=== PATIENT | male | born 1970 | race Caucasian/White ===

== ENCOUNTER 2021-12-24 12:08 | Emergency (ER) | payer BC, OTHER, SELFPAY ==
[2021-12-24 12:34] VITALS: BP 155/95; PULSE 95; RESP 18; TEMP 36.7; O2SAT 97; BMI 29.3
--- NOTE | 2021-12-24 12:59 | ED_ITS ---
HPI - General Adult General Chief complaint: Extremity Pain/Injury, Lower Stated complaint: Bilateral leg pain and swollen Time Seen by Provider: 12/24/21 12:42 Source: patient Mode of arrival: ambulatory Limitations: language barrier ( aided by deaf interpreter and myself in Urdu.) History of Present Illness HPI narrative: 51 year-old man presenting to the emergency department with complaint of swelling in his feet and little bit of his lower legs at the end of a workday as well as sensation of numbness particular toward the end of the day and the tingling is. The symptoms are not keeping him awake. Does not cause undue pain apparently is just uncomfortable. He does endorse rather uncontrolled blood sugars. Reviewing medication list I see that he has gabapentin 100 mg. He has not had fevers, shortness of breath or chest pain or noted trauma. I note some scarring or discoloration spots on his legs consistent with excoriation, he acknowledges that he ends up with a lot of mosquitos in his house. 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 his symptoms have not been affecting his work he says. he says these have been going on for at Least a month. He also can have These tingly sensations in his hands. It is not specific to the distribution of his median nerve. he has not been feeling particularly weak. He does acknowledge that his blood sugars have Been in the 600s. he does a say that he has a primary care provider in a [facility]. Related Data Home Medications Medication Instructions Recorded Confirmed atorvastatin 20 mg tablet mg 12/24/21 gabapentin 100 mg capsule mg 12/24/21 insulin aspart U-100 100 unit/mL subcut 12/24/21 (3 mL) subcutaneous pen (Novolog Flexpen U-100 Insulin aspart) insulin glargine 100 unit/mL unit subcut 12/24/21 subcutaneous solution (Lantus U-100 Insulin) metformin 500 mg tablet mg 12/24/21 Allergies Allergy/AdvReac Type Severity Reaction Status Date / Time No Known Drug Allergies Allergy Verified 12/24/21 12:40 Review of Systems Status of ROS: Reports: 10 or more systems reviewed and unremarkable except as noted in History and below Exam Narrative: Exam Narrative: Is pleasant. NAD. Breathing easily. Ambulates I note without apparent difficulty. Smaller stature but well muscled. Cardiovascular with regular rate rhythm skin is warm and dry. Noninflamed excoriations over the lower extremities. No edema at this time. Negative Homans. Const: Vital Signs, click to edit/add: Vital Signs - 24 hr 12/24/21 12:34 Temperature 98.0 F Pulse Rate [Right Pulse Oximeter] 95 Respiratory Rate 18 Blood Pressure [Ri ght Upper Arm] 155/95 H Pulse Oximetry 97 Oxygen Delivery Me thod Room Air Documenting provider has reviewed patient's vital signs: yes Course Course Hospital Course: As per Interview and exam. Vital Signs Vital signs: Initial Vital Signs Temperature 98.0 F 12/24/21 12:34 Temperature Source Temporal Artery Scan 12/24/21 12:34 Pulse Rate 95 12/24/21 12:34 Pulse Rhythm 12/24/21 12:34 Respiratory Rate 18 12/24/21 12:34 Blood Pressure 155/95 H 12/24/21 12:34 Blood Pressure Mean 115 12/24/21 12:34 Blood Pressure Position Sitting 12/24/21 12:34 Pulse Oximetry 97 12/24/21 12:34 Oxygen Delivery Method 12/24/21 12:34 Vital Signs Temperature 98.0 F 12/24/21 12:34 Pulse Rate 95 12/24/21 12:34 Respiratory Rate 18 12/24/21 12:34 Blood Pressure 155/95 H 12/24/21 12:34 Pulse Oximetry 97 12/24/21 12:34 Oxygen Delivery Method 12/24/21 12:34 Temperature 98.0 F 12/24/21 12:34 Pulse Rate 95 12/24/21 12:34 Respiratory Rate 18 12/24/21 12:34 Blood Pressure 155/95 H 12/24/21 12:34 Pulse Oximetry 97 12/24/21 12:34 Oxygen Delivery Method 12/24/21 12:34 Medical Decision Making MDM Narrative Medical decision making narrative: symptoms are consistent with peripheral neuropathy. would appear to already be treated for this. Importantly needs follow-up and review of treatment of blood sugars. This was discussed with Mr. Stanford. he does not appear to be in emergency Situation at this time. He has been monitoring his blood sugars which admittedly are out of control.. Discharge Plan Discharge Clinical Impression: Uncontrolled diabetes mellitus, Peripheral neuropathy Patient Disposition: Home, Self-Care Condition: Stable Additional Instructions: Please call today or ask staff to help you schedule an appointment with your primary care provider soon as possible. Importantly is to get good control of your blood sugars. I think uncontrolled blood sugars as you described are contributing to compromising the nerves and therefore creating the symptoms you are feeling. while not a cure, there are some medications that can otherwise lessen your symptoms if it becomes too uncomfortable. You can discuss this with your primary care provider .Llame gildardo o p?jeny al personal que lo ayude a programar nieves carole con horta proveedor de atenci?n primaria lo antes posible. Lo importante es obtener un buen control de miles niveles de az?car en la caroline. Creo que los niveles de az?car en la caroline no controlados ysabel usted describi? est?n contribuyendo a comprometer los nervios y, por lo tanto, a crear los s?ntomas que est? sintiendo. Si hermelindo no es nieves brandon, hay algunos medicamentos que de lo contrario pueden disminuir miles s?ntomas si se vuelve demasiado inc?modo. Puede discutir esto con horta proveedor de atenci?n primaria. Prescriptions: No Action metformin 500 mg tablet atorvastatin 20 mg tablet insulin glargine [Lantus U-100 Insulin] 100 unit/mL solution SUBCUT gabapentin 100 mg capsule insulin aspart U-100 [Novolog Flexpen U-100 Insulin] 100 unit/mL (3 mL) insulin pen SUBCUT Stand Alone Forms: MyHealth Info Instructions
== END 2021-12-24 13:39 | disposition home or self-care (01) ==
PROVIDERS: Emergency Provider Family Medicine
DX: E11.65 Type 2 diabetes mellitus with hyperglycemia (principal); E11.42 Type 2 diabetes mellitus with diabetic polyneuropathy; Z79.4 Long term (current) use of insulin
CPT/HCPCS: 99283

== ENCOUNTER 2022-11-28 17:56 | Inpatient (IN) | payer OTHER, SELFPAY ==
[2022-11-28 18:05] VITALS: BP 142/80; PULSE 87; RESP 16; TEMP 36.6; O2SAT 98; BMI 27.5
--- NOTE | 2022-11-28 18:28 | ED_ITS ---
HPI - General Adult General Time Seen by Provider: 18:28 Date Seen: 11/28/22 Chief complaint: Skin/Abscess/Foreign Body Stated complaint: Infection in toes, diabetic Time Seen by Provider: 11/28/22 18:26 Source: patient, RN notes reviewed and admission specialist Mode of arrival: ambulatory Limitations: no limitations History of Present Illness HPI narrative: Patient is a 52-year-old male accompanied by his coming in for concern of infected toe ulcers. He states he has toe ulcers on each of his great toes. His right great toe had had a prior previous partial amputation by Dr. Bhat. He denies any fevers. His had been taking care of these for weeks if not months and applying some medicine. Over the last 4 days, the swelling and pain was increasing. He does have underlying peripheral neuropathy which he states affects him up to about 2/3 up his lower extremities. Still is feeling pain in the wounds of his great toes, has been trying Tylenol. He admits that he has been off of his diabetic medicines for about 2 months due to cost issues. He has had no insulin. Denies any nausea vomiting but does admit that he will occasionally have diarrhea, last time was maybe 1-2 weeks ago. He does endorse chest pain, sometimes exertional burning chest pain, does note that often his chest will feel sore when he goes to bed at night. He is not having any chest symptomatology at this time. Related Data Home Medications Medication Instructions Recorded Confirmed atorvastatin 20 mg tablet mg 12/24/21 gabapentin 100 mg capsule mg 12/24/21 insulin glargine 100 unit/mL unit subcut 12/24/21 subcutaneous solution (Lantus U-100 Insulin) metformin 500 mg tablet mg 12/24/21 Previous Rx's Medication Instructions Recorded insulin aspart U-100 100 unit/mL 10 unit (0.1 mL) subcut TID #15 mL 10/18/22 (3 mL) subcutaneous pen (Novolog FlexPen U-100 Insulin aspart) pen needle, diabetic 31 gauge x #100 ea 10/18/2209/24 (UltiCare Pen Needle) Allergies Allergy/AdvReac Type Severity Reaction Status Date / Time No Known Drug Allergies Allergy Verified 12/24/21 12:40 Review of Systems Status of ROS: Reports: 6 or more systems reviewed and unremarkable except as noted in History and below PFSH PFS Medical History Diabetic neuropathy ?E11.40 - Type 2 diabetes mellitus with diabetic neuropathy, unspecified (ICD-10) Diabetes mellitus ?E11.9 - Type 2 diabetes mellitus without complications (ICD-10) Surgical History No significant past surgical history Social History Smoking Status: Never smoker How often do you have a drink containing alcohol: monthly or less How many standard drinks containing alcohol do you have on a typical day: 1 or 2 How often do you have six or more drinks on one occasion: Never AUDIT-C Alcohol total score: 1 Non-prescribed substance use: denies use Exam Const: Vital Signs, click to edit/add: Vital Signs - 24 hr 11/28/22 18:05 Temperature 97.8 F Pulse Rate [Pulse Oximeter] 87 Respiratory Rate 16 Blood Pressure [Ri ght Upper Arm] 142/80 H Pulse Oximetry 98 Oxygen Delivery Me thod Room Air Documenting provider has reviewed patient's vital signs: yes Common normals: no apparent distress, average body habitus, oriented x3, no limitations, healthy appearing, alert and well nourished General appearance: cooperative, comfortable, well kempt and well developed HENMT: Common normals: normocephalic, head/scalp atraumatic and hearing grossly normal bilaterally Head and scalp: normocephalic and atraumatic Face and sinus: normal facial exam Eye: Common normals: PERRL, EOMs intact bilaterally, conjunctivae normal and no scleral icterus Conjunctiva: conjunctiva(e) normal Pupil: PERRL Neck & C-Spine: Common normals: full ROM, no lymphadenopathy, supple, no meningeal signs, no JVD and thyroid normal Thyroid: thyroid normal Resp: Common normals: normal respiratory effort, no retractions, no use of accessory muscles and clear to auscultation bilaterally Effort & inspection: able to speak in complete sentences Auscultation: clear to auscultation bilaterally Cardio: Common normals: no JVD, regular rate, regular rhythm, S1 normal heart sound, S2 normal heart sound, no gallops, no clicks and no murmurs Rate: regular rate Rhythm: regular rhythm Heart sounds: S1 normal and S2 normal GI: Common normals: Normal to inspection, nondistended, normoactive bowel sounds present, soft to palpation, non-tender, no hepatosplenomegaly and no masses Palpation: soft and no hepatosplenomegaly Extremity: Other: On his right foot, has partial amputation of the great toe, on the plantar surface, there is an ulcerated wound with a dry base. It is blackish discolored in the center, some whitish tissue around it, no drainage. There does seem to be some soft tissue change in swelling within the residual phalanx. On the left great toe, do see some clear drainage, blistering laterally and distally, ulcer on the pad of this toe, erythema in the toe itself and swelling. Does seem to have dorsalis pedis faint pulses bilateral feet, states he does feel when I touch the top of his feet. There is no lower extremity edema/no pitting edema along the tibial regions bilaterally. Neuro: Common normals: oriented x3 Sensorium/orientation: alert Meningeal signs: no meningeal signs Psych: Appearance: well kempt Course Course Hospital Course: Need to assess further for infection, consideration for osteomyelitis in this diabetic patient. Will start with plain films of his toes, cannot do any advanced imaging with MRI at this time. Will get appropriate labs, place an IV. Will definitely need antibiotics. Will attempt to get a culture of the toe. Reevaluation(s) Time of Reevaluation #1: 20:40 Reevaluation #1: Did talk to patient about admission to the hospital with IV antibiotics and re- initiation of diabetic medications. They understand and agree. Did clean his right great toe near the distal lateral aspect, then was able to culture some purulent fluid that I a expressed from the tissue. This will be sent for wound culture. Will be initiating vancomycin and Zosyn, will give insulin Levemir. Consultations Consultation #1: Have completed my sign out to the hospitalist. He accepts patient and will be seening him shortly. Time: 21:07 Vital Signs Vital signs: Initial Vital Signs Temperature 97.8 F 11/28/22 18:05 Temperature Source Temporal Artery Scan 11/28/22 18:05 Pulse Rate 87 11/28/22 18:05 Respiratory Rate 16 11/28/22 18:05 Blood Pressure 142/80 H 11/28/22 18:05 Blood Pressure Mean 100 11/28/22 18:05 Blood Pressure Position Supine 11/28/22 18:05 Pulse Oximetry 98 11/28/22 18:05 Oxygen Delivery Method Room Air 11/28/22 18:05 Vital Signs Temperature 97.8 F 11/28/22 18:05 Pulse Rate 87 11/28/22 18:05 Respiratory Rate 16 11/28/22 18:05 Blood Pressure 142/80 H 11/28/22 18:05 Pulse Oximetry 98 11/28/22 18:05 Oxygen Delivery Method Room Air 11/28/22 18:05 Temperature 97.8 F 11/28/22 18:05 Pulse Rate 87 11/28/22 18:05 Respiratory Rate 16 11/28/22 18:05 Blood Pressure 142/80 H 11/28/22 18:05 Pulse Oximetry 98 11/28/22 18:05 Oxygen Delivery Method Room Air 11/28/22 18:05 Medical Decision Making Lab Data Lab results reviewed: Yes I reviewed the patient's lab results Labs: Lab Results 11/28/22 Range/Units 18:55 WBC 8.68 (4.50-11.00) K/uL RBC 5.13 (4.30-5.90) m/uL Hgb 15.0 (13.5-17.5) gm/dL Hct 43.0 (37.0-53.0) % MCV 84 (80-100) fL MCH 29 (26-34) pg MCHC 35 (32-36) gm/dL RDW Coeff of Abrahan 11.9 (11.5-15.5) % Plt Count 359 (140-440) K/uL Neut % (Auto) 60.0 (42.0-72.0) % Lymph % (Auto) 26.4 (20-44) % [place] % (Auto) 9.7 (0.0-11.0) % Eos % (Auto) 3.2 (0.0-7.0) % Baso % (Auto) 0.5 (0.0-3.0) % Neut # (Auto) 5.21 (1.7-7.0) K/uL Lymph # (Auto) 2.29 (0.90-2.90) K/uL [place] # (Auto) 0.80 (0.00-0.90) K/UL Eos # (Auto) 0.28 (0.00-0.50) K/uL Baso # (Auto) 0.04 (0.00-0.30) K/uL Abs Immat Gran (auto) 0.02 (0.00-0.30) K/uL Imm/Tot Granulo (auto) 0.2 % Sodium 131 L (135-149) mmol/L Potassium 3.8 (3.6-5.1) mmol/L Chloride 97 (96-114) mmol/L Carbon Dioxide 25 (20-32) mmol/L BUN 15 (7-30) mg/dL Creatinine 0.6 (0.5-1.5) mg/dL Estimated Creat Clear 121.96 Estimated GFR 117 ml/min Glucose 429 H* (60-115) mg/dL Lactate 1.8 (0.5-1.9) mmol/L Calcium 8.8 (8.4-10.6) mg/dL Total Bilirubin 0.7 (0.1-1.5) mg/dL AST 21 (12-35) U/L ALT 26 (4-50) U/L Alkaline Phosphatase 180 H (40-150) U/L Troponin I < 0.01 L (0.01-0.04) ng/mL C-Reactive Protein 2.5 H (0.5-1.0) mg/dL NT-Pro-B Natriuret Pep 78 pg/mL Total Protein 7.3 (6.0-8.3) g/dL Albumin 4.0 (3.3-5.0) g/dL Imaging Data XR left great toe: Attestation: I have reviewed the pertinent imaging results. My impression: Can see the ulceration, swelling but do not appreciate any changes of osteomyelitis on my preliminary review. Radiologist's impression: Patient: JAZMYN ARGUELLO Facility:?[facility] Patient ID:?[id number] Site Patient ID:?[id number]. Site :?1970 Study:?XRay Extremity Left Great Toe 3 views-11/28/2022 7:27:15 PM Ordering Physician:?Arnol Alvarez Final Report: Indication: Assess for osteomyelitis Technique: Three views of the left great toe were acquired Comparison: Non specific to this area Findings: Soft tissue swelling. Atherosclerotic vascular calcifications. No fracture, dislocation or destructive process. No periosteal reaction, erosion or bone destruction to suggest osteomyelitis by plain film Impression: Soft tissue swelling. No plain film evidence of osteomyelitis Dictated by Delvis Armenta MD @ 11/28/2022 8:25:25 PM (Electronic Signature) XR right great toe: Attestation: I have reviewed the pertinent imaging results. My impression: This toes been partially amputated before, can see ulceration tissue swelling but do not appreciate bony changes of osteomyelitis on my preliminary review. Await Radiology over-read. Radiologist's impression: Patient: JAZMYN ARGUELLO Facility:?[facility] Patient ID:?[id number] Site Patient ID:?[id number]. Site :?1970 Study:?XRay Extremity Right Great Toe 3 views-11/28/2022 7:27:55 PM Ordering Physician:?Arnol Alvarez Final Report: Indication: Infected ulcer. Technique: Three views of the right great toe were acquired. Comparison: A prior study dated November 09, 2020. At study was before the amputation of the distal phalanx of the great toe Findings: There has been interval amputation of the distal phalanx of the right great toe. An ulcer is noted at the distal medial aspect of remaining right great toe. On the oblique view, there is subtle erosion questioned adjacent to the ulcer which probably represents osteomyelitis. This could be confirmed by MRI. Impression: Suspect osteomyelitis involving the medial aspect of the head of the remaining proximal phalanx of the right great toe. This could be confirmed by MRI. Dictated by Delvis Armenta MD @ 11/28/2022 7:42:39 PM (Electronic Signature) ECG Data Attestation: I personally reviewed and interpreted this ECG as follows: (Sinus rhythm, 86 beats per minute. Poor R-wave progression in anterior precordial leads without any ST segment changes. QT corrected 440 milliseconds.) Prior ECG tracings: not available for review Critical Care Time Critical Care Time Critical Care Time: No Discharge Plan Discharge Prescriptions: No Action metformin 500 mg tablet atorvastatin 20 mg tablet insulin glargine [Lantus U-100 Insulin] 100 unit/mL solution SUBCUT gabapentin 100 mg capsule (DME) pen needle, diabetic [UltiCare Pen Needle] 31 gauge x 5/16 needle See Rx Instructions .ROUTE .COMPLEX Qty: 100 0RF Dose Instruction: USE DIRECTED WITH INSULIN Rx Instructions: USE DIRECTED WITH INSULIN insulin aspart U-100 [Novolog FlexPen U-100 Insulin] 100 unit/mL (3 mL) insulin pen 10 unit SUBCUT TID Qty: 15 0RF Rx Instructions: Patient is due for an appt. Follow Up/Referrals: Provider,Not a Local [Primary Care Provider] -
--- NOTE | 2022-11-28 18:44 | CRLHL7_ITS ---
For Patients: As a result of the Cures Act, medical imaging exams and procedure reports are released immediately into your electronic medical record. You may view this report before your referring provider. If you have questions, please contact your health care provider. Indication: Infected ulcer. Technique: Three views of the right great toe were acquired. Comparison: A prior study dated November 09, 2020. At study was before the amputation of the distal phalanx of the great toe Findings: There has been interval amputation of the distal phalanx of the right great toe. An ulcer is noted at the distal medial aspect of remaining right great toe. On the oblique view, there is subtle erosion questioned adjacent to the ulcer which probably represents osteomyelitis. This could be confirmed by MRI. Impression: Suspect osteomyelitis involving the medial aspect of the head of the remaining proximal phalanx of the right great toe. This could be confirmed by MRI. Dictated by Delvis Armenta MD @ 11/28/2022 7:42:39 PM (Electronically Signed)
--- NOTE | 2022-11-28 18:44 | CRLHL7_ITS ---
For Patients: As a result of the Cures Act, medical imaging exams and procedure reports are released immediately into your electronic medical record. You may view this report before your referring provider. If you have questions, please contact your health care provider. Indication: Assess for osteomyelitis Technique: Three views of the left great toe were acquired Comparison: Non specific to this area Findings: Soft tissue swelling. Atherosclerotic vascular calcifications. No fracture, dislocation or destructive process. No periosteal reaction, erosion or bone destruction to suggest osteomyelitis by plain film Impression: Soft tissue swelling. No plain film evidence of osteomyelitis Dictated by Delvis Armenta MD @ 11/28/2022 8:25:25 PM (Electronically Signed)
[2022-11-28 19:02] LABS: Basophils Absolute Auto 0.04 K/uL (0.00-0.30); Basophils Percent Auto 0.5 % (0.0-3.0); Eosinophils Absolute Auto 0.28 K/uL (0.00-0.50); Eosinophils Percent Auto 3.2 % (0.0-7.0); Immature Granulocytes Abs Auto 0.02 K/uL (0.00-0.30); Immature Granulocytes Pct Auto 0.2 %; Lymphocytes Absolute Auto 2.29 K/uL (0.90-2.90); Lymphocytes Percent Auto 26.4 % (20-44); Mean Corpuscular HGB Conc 35 gm/dL (32-36); Mean Corpuscular Hemoglobin 29 pg (26-34); Mean Corpuscular Volume 84 fL (80-100); Monocytes Percent Auto 9.7 % (0.0-11.0); Neutrophils Absolute Auto 5.21 K/uL (1.7-7.0); Platelet Count* 359 K/uL (140-440); RDW Coefficient of Variation % 11.9 % (11.5-15.5); Red Blood Count 5.13 m/uL (4.30-5.90); White Blood Count* 8.68 K/uL (4.50-11.00)
[2022-11-28 19:04] LABS: Slide Review Reflex No
[2022-11-28 19:05] LABS: Lactate* 1.8 mmol/L (0.5-1.9)
[2022-11-28 19:16] LABS: Chloride* 97 mmol/L (96-114); Sodium* 131 mmol/L (135-149)
[2022-11-28 19:17] LABS: Potassium* 3.8 mmol/L (3.6-5.1)
[2022-11-28 19:19] LABS: Aspartate Amino Transferase* 21 U/L (12-35); Bilirubin Total* 0.7 mg/dL (0.1-1.5); Carbon Dioxide* 25 mmol/L (20-32); Creatinine* 0.6 mg/dL (0.5-1.5); Est. Creatinine Clearance* 121.96; Estimated Glomerular Filt Rate 117 ml/min; Total Protein* 7.3 g/dL (6.0-8.3)
[2022-11-28 19:20] LABS: Alanine Aminotransferase* 26 U/L (4-50); Alkaline Phosphatase* 180 U/L (40-150); Blood Urea Nitrogen* 15 mg/dL (7-30); Calcium* 8.8 mg/dL (8.4-10.6)
[2022-11-28 19:22] LABS: C Reactive Protein* 2.5 mg/dL (0.5-1.0)
[2022-11-28 19:24] LABS: Glucose* 429 mg/dL (60-115)
[2022-11-28 19:39] LABS: Troponin I* < 0.01 ng/mL (0.01-0.04)
[2022-11-28 19:40] LABS: NT Pro B Type NatriureticPept* 78 pg/mL
[2022-11-28] MEDS: PIPERACILLIN/TAZOBACTAM 3.375 GM in 0.9 % SODIUM CHLORIDE Mini-bag 100 ML IVPB (20:35)
[2022-11-28 21:30] VITALS: BP 142/84; PULSE 74; RESP 16; O2SAT 99
[2022-11-28 22:10] VITALS: BP 134/88; PULSE 75; RESP 18; TEMP 36.2; O2SAT 96; BMI 25.7
--- NOTE | 2022-11-28 22:52 | PC.NURSE ---
Pt alert and oriented. Pt pleasant and cooperative. Pt Independent in room. Pt has pressure ulcers to both Great toes; right great toe partially amputated. Pt had no complaints of pain upon arrival to floor. Pt will be NPO after midnight and seen by Dr. Lindsay in AM.
--- NOTE | 2022-11-28 23:43 | PM.IMHP1 ---
Hospitalist- H&P: HPI History of Present Illness Time Seen by Provider: 22:00 Date Seen: 11/28/22 Chief complaint: Infection in toes, diabetic Narrative: Osmar Moreno is a 52 year old man who presents to the emergency department for assessment of nonhealing diabetic foot ulcers on the plantar aspect of both right and left great toes. He has been trying to care for these for at least a month. Been treating with topical qcfj-iiw-ixmluhi antibiotics. Continues to work outside the home, utilizes normal shoes. Does not have diabetic shoes. Has not had fevers, rigors, diaphoresis. Over the past 4 days, he and his have noted increasing swelling of both toes, and interestingly even though he has diabetic peripheral neuropathy, he has been having more pain. Has been trying to treat the pain with hhof-ecw-zfftaif acetaminophen only. As diabetes mellitus type 2. Due to patient not having health insurance and minimal funds, he does not follow with primary care physician and does not take any medications. He has been off of his medications including his insulin for at least 2 months. Review of Systems Status of ROS: Reports: 10 or more systems reviewed and unremarkable except as noted in History and below Narrative: Over the past couple weeks he has had occasional episodes of loose stools, no diarrhea per se. Denies melena or hematochezia. Denies nausea, vomiting, hematemesis. Denies dysuria, urgency, frequency, hematuria. Occasionally has chest discomfort described as burning typically when he goes to bed at night. Denies the chest discomfort with exertion during the day. If he rests eventually it resolves. Denies syncope or near-syncope. Denies palpitations or chest fluttering. Denies cough, dyspnea at rest, paroxysmal nocturnal dyspnea, orthopnea. Denies claudication symptoms. Denies dependent edema. Still play soccer periodically with his 12-year-old son. [facility] Medical History (Updated 11/28/22 @ 23:59 by Royal Nguyễn MD) Personal history of diabetic foot ulcer ?Z86.31 - Personal history of diabetic foot ulcer (ICD-10) Erectile dysfunction ?N52.9 - Male erectile dysfunction, unspecified (ICD-10) Hyperlipidemia ?E78.5 - Hyperlipidemia, unspecified (ICD-10) Patient's noncompliance with other medical treatment and regimen due to financial hardship ?Z91.190 - Patient's noncompliance with other medical treatment and regimen due to financial hardship (ICD-10) Diabetic neuropathy ?E11.40 - Type 2 diabetes mellitus with diabetic neuropathy, unspecified (ICD-10) Diabetes mellitus ?E11.9 - Type 2 diabetes mellitus without complications (ICD-10) Surgical History (Updated 11/28/22 @ 23:40 by Royal Nguyễn MD) History of partial amputation of toe of right foot ?Z89.421 - Acquired absence of other right toe(s) (ICD-10) Family History (Updated 11/28/22 @ 23:41 by Royal Nguyễn MD) Mother Diabetes Father Diabetes Social History (Updated 11/28/22 @ 23:43 by Royal Nguyễn MD) Narrative: . Lives with . They have 4 children. Cameroonian is his primary language. Speaks Chinese fairly fluently. , Mulu, does not speak Chinese fluently. Working outside the home. Does not have a primary care physician. Cannot afford medications, therefore does not take any medications even though he warrants medications to manage his underlying medical conditions. Requests full resuscitation in the event of cardiopulmonary demise. Designates his , Mulu, as power of health care attorney for health should that be required. What is your current living situation?: I presently have a place to live Problems where you live: no known problems Problems where you live details: NA In the past 12 months, utilities in danger of being shut off: no In the past 12 mos, have been you worried that your food would run out before you had money to buy more?: never true In the past 12 mos, the food you bought just didn't last and you didn't have money to buy more?: never true Highest level of school completed/degree received: don't know Smoking Status: Never smoker How often do you have a drink containing alcohol: monthly or less How many standard drinks containing alcohol do you have on a typical day: 1 or 2 How often do you have six or more drinks on one occasion: Never AUDIT-C Alcohol total score: 1 Non-prescribed substance use: denies use Caffeine: Yes How often does anyone, including family, friends and others, physically hurt you: never How often does anyone, including family, friends and others, insult or talk down to you: never How often does anyone, including family, friends and others, threaten you with harm: never How often does anyone, including family, friends and others, scream or curse at you: never Gender Identity: male service: No Meds Home Medications and Allergies Home Medications Medication Instructions Recorded Confirmed Type atorvastatin 20 mg tablet mg 12/24/21 History gabapentin 100 mg capsule mg 12/24/21 History insulin glargine 100 unit/mL unit subcut 12/24/21 History subcutaneous solution (Lantus U-100 Insulin) metformin 500 mg tablet mg 12/24/21 History Home Medication Comments: Currently taking no medications whatsoever. Has not been taking medications for at least 2 months. Unable to afford his medications. Allergies Allergy/AdvReac Type Severity Reaction Status Date / Time No Known Drug Allergies Allergy Verified 12/24/21 12:40 Exam Narrative: Exam Narrative: I examine him in the emergency department. He appears comfortable and in no acute distress. Speaks Cameroonian fluently with his . Able to speak Chinese quite adequately with myself, understanding, engaging in meaningful dialogue without difficulty. Interprets some of the conversation that I have with him for his who speaks Cameroonian fluently and speaks very little Chinese. Vision and hearing are grossly normal. Alert, oriented to self, place, time, situation. Friendly, articulate, cooperative. Mood and affect are congruent. External auditory canals and tympanic membranes are normal. Midline nasal septum. Dentition in fair repair. Moist buccal mucosa. No icterus or conjunctival injection. Pupils equally round and reactive to light and accommodation. Extraocular muscles are intact. Neck is supple. Midline trachea. No JVD or hepatojugular reflux. No carotid bruits. No head and neck lymphadenopathy. Lungs are clear to auscultation without wheezing, rhonchi, or rales. Chest wall excursions are full. No CVA tenderness or pain to palpation over the spine. Heart tones with regular rhythm, normal S1-S2, without murmur, gallop, or rub. PMI is not laterally displaced. Abdomen with active bowel sounds, soft, nontender. No organomegaly or masses. No rebound or guarding. Palpable pulses upper and lower extremities. No focal motor neurologic deficits. Decreased sensory awareness below the knee bilaterally including the feet. Swelling of both right and left hallux. Ulcers on the plantar aspect of both hallux. Both hallux are warm to touch. Minimal to moderate erythema of both hallux. Minimal purulent drainage of the left hallux. Const: Vital Signs, click to edit/add: Vital Signs - 24 hr 11/28/22 18:05 11/28/22 21:30 11/28/22 22:10 Temperature 97.8 F 97.1 F L Pulse Rate [Pulse Oximeter] 87 74 75 Respiratory Rate 16 16 18 Blood Pressure [Ri ght Arm] 134/88 Blood Pressure [Ri ght Upper Arm] 142/80 H 142/84 H Pulse Oximetry 98 99 96 Oxygen Delivery Me thod Room Air Room Air Room Air 11/28/22 22:10 Temperature Pulse Rate [Pulse Oximeter] Respiratory Rate 18 Blood Pressure [Ri ght Arm] Blood Pressure [Ri ght Upper Arm] Pulse Oximetry 96 Oxygen Delivery Me thod Room Air Documenting provider has reviewed patient's vital signs: yes Hospitalist - H&P: Result Labs Labs: Short CBC 11/28/22 Range/Units 18:55 WBC 8.68 (4.50-11.00) K/uL Hgb 15.0 (13.5-17.5) gm/dL Hct 43.0 (37.0-53.0) % Plt Count 359 (140-440) K/uL BMP 11/28/22 18:55 Sodium 131 L Potassium 3.8 Chloride 97 Carbon Dioxide 25 BUN 15 Creatinine 0.6 Glucose 429 H* Calcium 8.8 Cardiac Enzymes 11/28/22 Range/Units 18:55 Troponin I < 0.01 L (0.01-0.04) ng/mL Liver Function 11/28/22 Range/Units 18:55 Total Bilirubin 0.7 (0.1-1.5) mg/dL AST 21 (12-35) U/L ALT 26 (4-50) U/L Alkaline Phosphatase 180 H (40-150) U/L Albumin 4.0 (3.3-5.0) g/dL ECG Attestation: I personally reviewed and interpreted this ECG as follows: ECG interpretation date: 11/28/22 ECG interpretation time: 22:00 Interpretation: Normal sinus rhythm. Poor R-wave progression anteriorly, without any acute ischemic changes noted. Imaging X-ray - left great toe: Attestation: I have reviewed the pertinent imaging results. Radiologist's impression: Findings: Soft tissue swelling. Atherosclerotic vascular calcifications. No fracture, dislocation or destructive process. No periosteal reaction, erosion or bone destruction to suggest osteomyelitis by plain film Impression: Soft tissue swelling. No plain film evidence of osteomyelitis X-ray - right great toe: Attestation: I have reviewed the pertinent imaging results. Radiologist's impression: Findings: There has been interval amputation of the distal phalanx of the right great toe. An ulcer is noted at the distal medial aspect of remaining right great toe. On the oblique view, there is subtle erosion questioned adjacent to the ulcer which probably represents osteomyelitis. This could be confirmed by MRI. Impression: Suspect osteomyelitis involving the medial aspect of the head of the remaining proximal phalanx of the right great toe. This could be confirmed by MRI. Assessment and Plan Assessment and plan (1) Diabetic foot ulcer with osteomyelitis: Problem comment: Right great toe medial aspect phalanx Status: Acute Assessment and Plan: 1. Consultation with Dr. Guanaco Bhat, pedal assembler. 2. IV vancomycin and IV Zosyn. 3. NPO after midnight. 4. Schedule acetaminophen and as needed oxycodone. 5. Physical therapy consultation. Will attempt to optimize offloading of the diabetic foot ulcers. (2) Diabetic ulcer of foot associated with diabetes mellitus due to underlying condition, limited to breakdown of skin: Problem comment: Left great toe Status: Acute Assessment and Plan: 1. Plan as specified above regarding the right great toe foot ulcer with osteomyelitis. 2. Phone culture obtained in the emergency department. (3) Diabetes mellitus: Problem comment: DMT2, poor control Status: Acute Assessment and Plan: 1. Reinitiate insulin, long-acting Levemir, and sliding scale short-acting insulin, aspart, while in hospital. 2. When discharging will likely need to change to a more affordable insulin such as 70 30 NPH and regular insulin. 3. Will not initiate metformin therapy at this juncture. (4) Patient's noncompliance with other medical treatment and regimen due to financial hardship: Status: Acute Assessment and Plan: 1. Complaint Specialist consultation. Plan 1. Reviewed impression with patient and . Answered their questions. 2. They agreeable with above stated plans and recommendations.
[2022-11-29] VITALS (35 sets, daily range): BP systolic 110–173; BP diastolic 69–100; PULSE 70–86; RESP 14–18; TEMP 35.9–36.8; O2SAT 94–98
[2022-11-29] MEDS: SODIUM CHLORIDE 0.9 % (FLUSH) 10 ML SYRINGE 5 ML IVF ×2 (00:52→03:04)
[2022-11-29] MEDS: LACTATED RINGERS 1000 ML 1,000 ML 75 ML IV ×2 (00:52→19:31)
[2022-11-29] MEDS: 0.9 % SODIUM CHLORIDE 250 ml IV (03:03)
[2022-11-29] MEDS: PIPERACILLIN/TAZOBACTAM 3.375 GM in 0.9 % SODIUM CHLORIDE Mini-bag 100 ML IVPB ×4 (03:04→20:45)
--- NOTE | 2022-11-29 05:42 | PC.NURSE ---
END OF SHIFT NOTE: PT PLEASANT AND COOPERATIVE. A&Ox4. DENIES CP, SOB, N/V. AMBULATES INDEPENDENTLY WITHIN ROOM. VSS ON RA; AFEBRILE. PT HAS BEEN NPO SINCE MIDNIGHT. -GAETANO STAYED NIGHT AT PT'S BEDSIDE. DR. WELCH TO SEE PT AT BEDSIDE THIS AM. CALL LIGHT WITHIN PT?S REACH.?
[2022-11-29 06:40] LABS: Basophils Percent Auto 0.6 % (0.0-3.0); Eosinophils Percent Auto 5.7 % (0.0-7.0); Hematocrit 43.3 % (37.0-53.0); Immature Granulocytes Pct Auto 0.3 %; Lymphocytes Percent Auto 29.7 % (20-44); Mean Corpuscular HGB Conc 35 gm/dL (32-36); Mean Corpuscular Hemoglobin 29 pg (26-34); Mean Corpuscular Volume 84 fL (80-100); Monocytes Percent Auto 9.2 % (0.0-11.0); Neutrophils Percent Auto 54.5 % (42.0-72.0); Platelet Count* 333 K/uL (140-440); Red Blood Count 5.16 m/uL (4.30-5.90); White Blood Count* 6.71 K/uL (4.50-11.00)
[2022-11-29 06:41] LABS: Basophils Absolute Auto 0.04 K/uL (0.00-0.30); Eosinophils Absolute Auto 0.38 K/uL (0.00-0.50); Immature Granulocytes Abs Auto 0.02 K/uL (0.00-0.30); Lymphocytes Absolute Auto 1.99 K/uL (0.90-2.90); Neutrophils Absolute Auto 3.66 K/uL (1.7-7.0)
[2022-11-29 06:43] LABS: Slide Review Reflex No
[2022-11-29 06:57] LABS: INR 1.07 (0.91-1.10); Prothrombin Time 14.5 Seconds
[2022-11-29 07:14] LABS: Chloride* 100 mmol/L (96-114)
[2022-11-29 07:15] LABS: Potassium* 4.1 mmol/L (3.6-5.1); Sodium* 134 mmol/L (135-149)
[2022-11-29 07:17] LABS: Alkaline Phosphatase* 143 U/L (40-150); Creatinine* 0.6 mg/dL (0.5-1.5); Est. Creatinine Clearance* 121.96; Estimated Glomerular Filt Rate 117 ml/min
[2022-11-29 07:18] LABS: Blood Urea Nitrogen* 18 mg/dL (7-30); Carbon Dioxide* 25 mmol/L (20-32); Glucose* 305 mg/dL (60-115)
[2022-11-29 07:19] LABS: Calcium* 8.7 mg/dL (8.4-10.6); Phosphorus* 3.9 mg/dL (2.5-4.5)
[2022-11-29 07:21] LABS: C Reactive Protein* 2.3 mg/dL (0.5-1.0)
--- NOTE | 2022-11-29 08:47 | P.PODCN_ITS ---
[facility] - Podiatry Data of Consult Time Seen by Provider: 08:00 Date Seen: 11/29/22 Patient: Other Consult date: 11/29/22 Requesting physician: Royal Nguyễn MD Primary care provider: Not a Local Provider Consult Narrative Reason for consult: Osteomyelitis right great toe Narrative: Osmar Moreno is a 52 year old man who presented to the emergency department for assessment of nonhealing diabetic foot ulcers on the plantar aspect of both right and left great toes. He has been trying to care for these for at least a month. Been treating with topical pcbk-rmx-rdekjfk antibiotics. Continues to work outside the home, utilizes normal shoes. Does not have diabetic shoes. Has not had fevers, rigors, diaphoresis. Over the past 4 days, he and his have noted increasing swelling of both toes, and interestingly even though he has diabetic peripheral neuropathy, he has been having more pain. Has been trying to treat the pain with qpzh-nko-bzqbxui acetaminophen only. As diabetes mellitus type 2. Due to patient not having health insurance and minimal funds, he does not follow with primary care physician and does not take any medications. He has been off of his medications including his insulin for at least 2 months. Patient is well known to me and has had previous partial right great toe amputation. cc:: CC: Royal Nguyễn MD Review of Systems Status of ROS: Reports: 10 or more systems reviewed and unremarkable except as noted in History and below [facility] Medical History (Updated 11/28/22 @ 23:59 by Royal Nguyễn MD) Personal history of diabetic foot ulcer ?Z86.31 - Personal history of diabetic foot ulcer (ICD-10) Erectile dysfunction ?N52.9 - Male erectile dysfunction, unspecified (ICD-10) Hyperlipidemia ?E78.5 - Hyperlipidemia, unspecified (ICD-10) Patient's noncompliance with other medical treatment and regimen due to financial hardship ?Z91.190 - Patient's noncompliance with other medical treatment and regimen due to financial hardship (ICD-10) Diabetic neuropathy ?E11.40 - Type 2 diabetes mellitus with diabetic neuropathy, unspecified (ICD-10) Diabetes mellitus ?E11.9 - Type 2 diabetes mellitus without complications (ICD-10) Surgical History (Updated 11/28/22 @ 23:40 by Royal Nguyễn MD) History of partial amputation of toe of right foot ?Z89.421 - Acquired absence of other right toe(s) (ICD-10) Family History (Updated 11/28/22 @ 23:41 by Royal Nguyễn MD) Mother Diabetes Father Diabetes Social History (Updated 11/28/22 @ 23:43 by Royal Nguyễn MD) Narrative: . Lives with . They have 4 children. [place] is his primary language. Speaks Surinamese fairly fluently. , Mulu, does not speak Surinamese fluently. Working outside the home. Does not have a primary care physician. Cannot afford medications, therefore does not take any medications even though he warrants medications to manage his underlying medical conditions. Requests full resuscitation in the event of cardiopulmonary demise. Designates his , Mulu, as power of equipment engineer for health should that be required. What is your current living situation?: I presently have a place to live Problems where you live: no known problems Problems where you live details: NA In the past 12 months, utilities in danger of being shut off: no In the past 12 mos, have been you worried that your food would run out before you had money to buy more?: never true In the past 12 mos, the food you bought just didn't last and you didn't have money to buy more?: never true Highest level of school completed/degree received: don't know Smoking Status: Never smoker How often do you have a drink containing alcohol: monthly or less How many standard drinks containing alcohol do you have on a typical day: 1 or 2 How often do you have six or more drinks on one occasion: Never AUDIT-C Alcohol total score: 1 Non-prescribed substance use: denies use Caffeine: Yes How often does anyone, including family, friends and others, physically hurt you : never How often does anyone, including family, friends and others, insult or talk down to you: never How often does anyone, including family, friends and others, threaten you with harm: never How often does anyone, including family, friends and others, scream or curse at you: never Gender Identity: male service: No Exam Narrative: Exam Narrative: General: No distress resting comfortably. Vascular: Faintly palpable dorsalis pedis and posterior tibial pulses bilateral. Capillary fill time less than 3 seconds. Neuro: Insensate to light touch bilateral feet. Musculoskeletal: Partial amputation right great toe. Normal muscle strength bilateral by mouth. Derm: The plantar aspect of right great toe stump with ulceration that is 1 cm x 1 cm with exposed proximal phalanx. No purulence. No significant erythema around the right toe. Left great toe with edema to the distal tip with abscess formation. Following debridement of the abscess there is exposed distal phalanx. Plantar left great toe with open ulceration with exposed subcutaneous tissue. No exposed bone. Ulceration measures 2 cm x 1.5 cm. There is no erythema at the level of the proximal phalangeal base or MPJ. WBC 8.6 down to 6.7 Hemoglobin A1c 12.7 CRP 2.5 down to 2.3 Glucose 429 X-ray: Osteomyelitis distal medial proximal phalanx right great toe. Const: Vital Signs, click to edit/add: Vital Signs - 24 hr 11/28/22 18:05 11/28/22 21:30 11/28/22 22:10 Temperature 97.8 F 97.1 F L Pulse Rate [Pulse Oximeter] 87 74 75 Respiratory Rate 16 16 18 Blood Pressure [Le ft Arm] Blood Pressure [Ri ght Arm] 134/88 Blood Pressure [Ri ght Upper Arm] 142/80 H 142/84 H Pulse Oximetry 98 99 96 Oxygen Delivery Me thod Room Air Room Air Room Air 11/28/22 22:10 11/29/22 00:50 11/29/22 03:00 Temperature 97.6 F Pulse Rate [Pulse Oximeter] 70 71 Respiratory Rate 18 16 16 Blood Pressure [Le ft Arm] 124/82 Blood Pressure [Ri ght Arm] Blood Pressure [Ri ght Upper Arm] Pulse Oximetry 96 97 Oxygen Delivery Me thod Room Air Room Air 11/29/22 07:20 11/29/22 07:20 11/29/22 07:20 Temperature 97.1 F L Pulse Rate [Pulse Oximeter] 74 Respiratory Rate 16 18 18 Blood Pressure [Le ft Arm] 147/87 H Blood Pressure [Ri ght Arm] Blood Pressure [Ri ght Upper Arm] Pulse Oximetry 97 96 Oxygen Delivery Me thod Room Air Room Air Documenting provider has reviewed patient's vital signs: yes Assessment and Plan Assessment and plan (1) Diabetic foot ulcer with osteomyelitis: Problem comment: Right great toe medial aspect phalanx Status: Acute (2) Diabetic ulcer of foot associated with diabetes mellitus due to underlying condition, limited to breakdown of skin: Problem comment: Left great toe Status: Acute Plan Assessment: Diabetic neuropathic ulceration bilateral great toes with underlying osteomyelitis right and abscess left Plan: I discussed treatment options with the patient and his . Because of the underlying osteomyelitis on right great toe I recommend surgical intervention to remove the infected bone. Will plan for excision of the ulcer and removal of majority of the proximal phalanx and attempt primary closure. On the left great toe will surgically debride the area and decide on viable tissue if there is enough we will plan for arthroplasty of the IPJ. If the tissues are nonviable we will plan for partial or complete amputation of left great toe. He is amendable to doing this under local anesthetic. He has been NPO since midnight. We will continue IV antibiotics. Wound culture obtained from the abscessed area on left great toe. I made a small stab incision in the abscessed area and drained a small amount of purulence. Sterile dressing applied. I reviewed the procedure, recovery, expectations and potential complications. Patient understands and wishes to proceed with surgery. Written consent was obtained. Will take him to surgery this morning. Nail Debridement Qualifies If: Qualifiers If:: A patient qualifies for nail debridement if they have: 1 class A finding (Q7) 2 class B findings (Q8) OR 1 class B & 2 class C findings in addition to a primary condition (Q9)
[2022-11-29] MEDS: BUPIVACAINE 0.5% 30 ML 15 ML INJECTION ×2 (09:14→09:16)
--- NOTE | 2022-11-29 10:25 | SUR.OPER ---
TIME OUT PERFORMED PRIOR TO INJECTION OF THE LOCAL IN THE BILATERAL FEET AT 09:13. PATIENT QUESTIONS ANSWERED SATISFACTORILY PREOPERATIVELY.? PATIENT BROUGHT TO OR #3 PER CART.? Patient positioned supine on OR #4 bed.? The perioperative?team supported arms bilaterally on arm boards.? Final approval of positioning by surgeon.?
--- NOTE | 2022-11-29 11:15 | PM.PROC ---
Procedure Note Date Seen: 11/29/22 Date of procedure: 11/29/22 Will [facility] bill your pro fee for this procedure?: No Procedure Description: Preoperative diagnosis: Osteomyelitis right great toe proximal phalanx, nonhealing diabetic ulceration with abscess left great toe Postoperative diagnosis: Osteomyelitis right great toe proximal phalanx, nonhealing diabetic ulceration with abscess left great toe Procedure: 1. Partial amputation left great toe 2. Excision of infected bone proximal phalanx right great toe 3. Rotational flap closure right your foot Hemostasis: Ankle tourniquet at 250 mm Hg Complications: None apparent Indication for surgery: Patient has been hospitalized for osteomyelitis right great toe proximal phalanx in addition to left great toe infection with cellulitis and abscess. Has had longstanding issues with nonhealing ulcerations this had previous partial amputation on the right. Reviewed treatment options and recommend surgical intervention to remove the infected bone and excise the ulcer and close the right side. Due to the significant abscess and nonhealing ulcer on the left I recommend partial amputation. I reviewed the procedure, recovery, expectations and potential complications. These include but are not limited to: Poor wound healing, continued infection, potential need for future surgery, deep venous thrombosis, pulmonary embolism, possible . He understands risks written consent was obtained. Sites were marked. Procedure: Patient was brought the operating room placed supine position on operating table. Standard time-out protocol followed. 15 mL of 0.5% Marcaine plain was injected into each foot. Bilateral feet were prepped and draped in a sterile fashion. Left foot was then exsanguinated the tourniquet inflated. [place] Incision was made creating a dorsal and plantar flaps. Incision was carried down to bone. The toe was disarticulated at the IPJ and removed. The proximal phalanx was then transected at the metaphyseal flare. Bone is healthy in appearance. Wound was thoroughly irrigated normal sterile saline. All bleeding vessels were cauterized. Primary closure was accomplished with 3-0 nylon using combination of simple and retention suture. On the right foot an incision was made starting the medial base of the proximal phalanx. Incision was extended distally for 2 cm then extended plantarly and diverge to make a semi elliptical incision around the ulcer site converging on the lateral aspect. The dorsal and distal portion was raised from the bone to be rotated later. Soft tissues were freed up from the plantar and medial aspect of the phalanx. Using a sagittal saw the proximal phalanx was transected at the base and removed. Bone appeared healthy and bleeding at this level. An additional 2 mm section of bone was then taken and sent for clear margin. Wound was thoroughly irrigated with sterile saline. All bleeding vessels cauterized. The rotational flap was then rotated and plantar and medial direction closing the space. The flap was sutured in place with 3-0 nylon with minimal tension. Sterile dressing was applied to both feet. Patient was transferred from [place] [facility] with vital signs stable and vascular status intact bilateral feet. Will continue with IV antibiotics until cultures complete. He will be bedrest with bathroom privileges. Anesthesia: local Surgeon: Guanaco Bhat DPM Estimated blood loss (mL): 50 Pathology: specimen obtained, sent to pathology (Clear margin proximal phalanx right great toe) Condition: stable Disposition: floor
--- NOTE | 2022-11-29 12:50 | REH.PT ---
Hold PT until pt is off bed rest. To be reassessed tomorrow.
[2022-11-29] MEDS: GABAPENTIN 100 MG CAPSULE PO ×2 (14:19→20:45)
--- NOTE | 2022-11-29 14:31 | PC.NURSE ---
end of shift. pt is very pleasant. no pain. he can speak Chilean and did not want a associate financial analyst. was in room and pt was translating for her. .he is eating, drinking and void. he is using a urinal. he is bedrest and BSC per MD Bhat. Pt has pressure ulcers to both Great toes; right great toe partially amputated. he went to surgery and had rest of right great toe removed and 1/2 of left great toe removed. swab of left toe was sent. both feet are wrapped and C/D/I. IS is patent. BS was 317 before surgery and no insulin per and 253 after and he got insulin with food.
--- NOTE | 2022-11-29 17:00 | NUTR.NU ---
Met with pt, and four children. Daughter was interpretor. Patient was educated on carbohydrate counting, portion sizes, balancing meals/snacks and label reading.? Healthy Meal Planning handout provided from [employer].? Recommended for patient to have 3 carbohydrate choices at meals with 1-2 choices for snacks as needed based on hunger.? Patient was also encouraged to keep timing of meals consistent and avoid skipping meals. Importance of obtaining insulin and testing supplies was emphasized. Patient verbalized understanding. intends to apply for assistance on Friday and states prescriptions have been sent to [facility].? RDNs contact information was provided and patient was encouraged to contact RDN with questions.
--- NOTE | 2022-11-29 21:47 | PM.IMPN1 ---
Progress Note: A&P Assessment and plan (1) Diabetic foot ulcer with osteomyelitis: Problem details: Right great toe medial aspect proximal phalanx. : Excision of infected bone proximal phalanx right great toe, and rotational flap closure Status: Acute Assessment and Plan: G stain demonstrates a Gram-positive cocci. Wound culture results are still pending. Continue with IV vancomycin and IV Zosyn for now. Wound care per surgeon. Optimize glucose management efforts safely, slowly, over time. Will increase insulin dose today. Will initiate metformin tomorrow. Optimize diet. Optimize offloading efforts. Physical therapy and occupational therapy to continue to assist. (2) Diabetic ulcer of foot associated with diabetes mellitus due to underlying condition, limited to breakdown of skin: Problem details: Left great toe. 11/29/22: Partial amputation left great toe. Status: Acute Assessment and Plan: G stain demonstrates a Gram-positive cocci. Wound culture results are still pending. Continue with IV vancomycin and IV Zosyn for now. Wound care per surgeon. Optimize glucose management efforts safely, slowly, over time. Will increase insulin dose today. Will initiate metformin tomorrow. Optimize diet. Optimize offloading efforts. Physical therapy and occupational therapy to continue to assess. (3) Diabetes mellitus: Problem details: DMT2, poor control Status: Acute Assessment and Plan: Increase Levemir insulin. Start scheduled aspart insulin with meals. Continue with sliding scale aspart insulin. Initiate metformin tomorrow. (4) Patient's noncompliance with other medical treatment and regimen due to financial hardship: Problem details: Supervisor [place] has been consulted to help with patient financial status. Status: Acute Plan 1. Reviewed my impressions with the patient. 2. Patient agreeable with above stated plans and recommendations. 3. Answered patient's questions to his satisfaction. 4. His was not present today when I visited him, he assured me that he will talk with her and update her on his situation. Time Spent With Patient Total time spent: 30 minutes Subjective Time Seen by Provider: 15:00 Date Seen: 11/29/22 Interval history: Hospital day 2. Postoperative day 0. Patient brought to the OR today where he had the following procedures done per Dr. Guanaco Bhat: 1. Partial amputation left great toe 2. Excision of infected bone proximal phalanx right great toe 3. Rotational flap closure right your foot I assess some postoperatively. He indicates he is feeling well. The pain that he was experiencing yesterday is seemingly resolved at this time. Blood glucose levels are starting to come down, no longer in the 400s but still in the 200s. G stain of sample obtained from foot demonstrates a Gram-positive cocci at this time. Wound culture results still pending. Exam Narrative: Exam Narrative: Appears comfortable and in no acute distress. Alert, oriented to self, place, time, situation. Friendly, cooperative, articulate. Mood and affect are congruent. Lungs are clear to auscultation. Heart tones with regular rhythm. Abdomen with active bowel sounds, soft, nontender. I do not examine the postoperative surgical wounds. Dressings in place. Const: Vital Signs, click to edit/add: Vital Signs - 24 hr 11/28/22 22:10 11/28/22 22:10 11/29/22 00:50 Temperature 97.1 F L Pulse Rate Pulse Rate [Pulse Oximeter] 75 70 Respiratory Rate 18 18 16 Blood Pressure [Le ft Arm] Blood Pressure [Ri ght Arm] 134/88 Pulse Oximetry 96 96 [facility] Delivery [facility] Room Air Room Air 11/29/22 03:00 11/29/22 07:20 11/29/22 07:20 Temperature 97.6 F 97.1 F L Pulse Rate Pulse Rate [Pulse Oximeter] 71 74 Respiratory Rate 16 16 18 Blood Pressure [Le ft Arm] 124/82 147/87 H Blood Pressure [Ri ght Arm] Pulse Oximetry 97 97 96 Oxygen Delivery [facility] Room Air Room Air Room Air 11/29/22 07:20 11/29/22 09:16 11/29/22 09:20 Temperature Pulse Rate 79 78 Pulse Rate [Pulse Oximeter] Respiratory Rate 18 16 16 Blood Pressure [Le ft Arm] Blood Pressure [Ri ght Arm] 173/96 H 157/90 H Pulse Oximetry Oxygen Delivery [facility] Room Air Room Air 11/29/22 09:25 11/29/22 09:30 11/29/22 09:35 Temperature Pulse Rate 78 79 79 Pulse Rate [Pulse Oximeter] Respiratory Rate 15 16 16 Blood Pressure [Le ft Arm] Blood Pressure [Ri ght Arm] 161/94 H 162/95 H 167/99 H Pulse Oximetry Oxygen Delivery [facility] Room Air Room Air Room Air 11/29/22 09:40 11/29/22 09:45 11/29/22 09:50 Temperature Pulse Rate 79 80 78 Pulse Rate [Pulse Oximeter] Respiratory Rate 16 16 16 Blood Pressure [Le ft Arm] Blood Pressure [Ri ght Arm] 167/93 H 168/94 H 164/100 H Pulse Oximetry Oxygen Delivery [facility] Room Air Room Air Room Air 11/29/22 09:55 11/29/22 10:00 11/29/22 10:05 Temperature Pulse Rate 78 78 79 Pulse Rate [Pulse Oximeter] Respiratory Rate 16 16 16 Blood Pressure [Le ft Arm] Blood Pressure [Ri ght Arm] 161/94 H 162/99 H 162/97 H Pulse Oximetry Oxygen Delivery [facility] Room Air Room Air Room Air 11/29/22 10:10 11/29/22 10:15 11/29/22 10:20 Temperature Pulse Rate 86 80 78 Pulse Rate [Pulse Oximeter] Respiratory Rate 16 16 16 Blood Pressure [Le ft Arm] Blood Pressure [Ri ght Arm] 171/94 H 171/94 H 166/91 H Pulse Oximetry Oxygen Delivery Ct [facility] Room Air Room Air Room Air 11/29/22 10:25 11/29/22 10:30 11/29/22 10:35 Temperature Pulse Rate 76 78 79 Pulse Rate [Pulse Oximeter] Respiratory Rate 16 16 16 Blood Pressure [Le ft Arm] Blood Pressure [Ri ght Arm] 160/91 H 162/95 H 163/97 H Pulse Oximetry Oxygen Delivery Ct [facility] Room Air Room Air Room Air 11/29/22 10:40 11/29/22 10:45 11/29/22 10:50 Temperature Pulse Rate 77 76 76 Pulse Rate [Pulse Oximeter] Respiratory Rate 16 16 16 Blood Pressure [Le ft Arm] Blood Pressure [Ri ght Arm] 160/94 H 155/94 H 154/88 H Pulse Oximetry Oxygen Delivery [facility] Room Air Room Air Room Air 11/29/22 10:55 11/29/22 11:00 11/29/22 11:05 Temperature Pulse Rate 76 77 77 Pulse Rate [Pulse Oximeter] Respiratory Rate 16 16 16 Blood Pressure [Le ft Arm] Blood Pressure [Ri ght Arm] 150/91 H 158/92 H 141/85 H Pulse Oximetry Oxygen Delivery [facility] Room Air Room Air Room Air 11/29/22 11:20 11/29/22 11:45 11/29/22 12:00 Temperature 96.6 F L 96.6 F L Pulse Rate Pulse Rate [Pulse Oximeter] 75 74 78 Respiratory Rate 16 16 16 Blood Pressure [Le ft Arm] 136/92 H 131/92 H 141/98 H Blood Pressure [Ri ght Arm] Pulse Oximetry 97 98 94 Oxygen Delivery [facility] Room Air Room Air Room Air 11/29/22 12:15 11/29/22 13:06 11/29/22 14:00 Temperature Pulse Rate Pulse Rate [Pulse Oximeter] 81 84 79 Respiratory Rate 16 16 14 Blood Pressure [Le ft Arm] 144/91 H 125/82 110/73 Blood Pressure [Ri ght Arm] Pulse Oximetry 95 97 97 Oxygen Delivery [facility] Room Air Room Air Room Air 11/29/22 15:10 11/29/22 15:10 11/29/22 20:55 Temperature 98 F 98.2 F Pulse Rate Pulse Rate [Pulse Oximeter] 76 84 Respiratory Rate 16 18 Blood Pressure [Le ft Arm] 118/77 119/69 Blood Pressure [Ri ght Arm] Pulse Oximetry 96 96 95 Oxygen Delivery [facility] Room Air Room Air Documenting provider has reviewed patient's vital signs: yes Labs Labs: Laboratory Results - last 24 hr 11/28/22 11/29/22 11/29/22 18:55 00:17 06:22 WBC 6.71 RBC 5.16 Hgb 15.0 Hct 43.3 MCV 84 MCH 29 MCHC 35 RDW Coeff of Abrahan 12.0 Plt Count 333 Neut % (Auto) 54.5 Lymph % (Auto) 29.7 Bremer % (Auto) 9.2 Eos % (Auto) 5.7 Baso % (Auto) 0.6 Neut # (Auto) 3.66 Lymph # (Auto) 1.99 Bremer # (Auto) 0.60 Eos # (Auto) 0.38 Baso # (Auto) 0.04 Abs Immat Gran (auto) 0.02 Imm/Tot Granulo (auto) 0.3 INR 1.07 Sodium 134 L Potassium 4.1 Chloride 100 Carbon Dioxide 25 BUN 18 Creatinine 0.6 Estimated Creat Clear 121.96 Estimated GFR 117 Glucose 305 H Hemoglobin A1c 12.70 H Lactate 1.0 Calcium 8.7 Phosphorus 3.9 Magnesium 2.0 Alkaline Phosphatase 143 C-Reactive Protein 2.3 H Lab Acknowledgement Test Added
--- NOTE | 2022-11-29 23:19 | PC.NURSE ---
Shift [id number]- Patient denies pain throughout shift. He remains compliant to bedrest. Feet are bandaged and wrapped. Family at bedside this evening. Appetite intact. He is able to communicate needs in Turkish.
[2022-11-30] MEDS: PIPERACILLIN/TAZOBACTAM 3.375 GM in 0.9 % SODIUM CHLORIDE Mini-bag 100 ML IVPB ×4 (02:23→20:30)
[2022-11-30] MEDS: 0.9 % SODIUM CHLORIDE 250 ml IV (02:24)
[2022-11-30] MEDS: ACETAMINOPHEN 325 MG TABLET 650 MG PO (02:28)
[2022-11-30 03:00] VITALS: BP 126/73; PULSE 78; RESP 18; TEMP 36.8; O2SAT 96
[2022-11-30 07:00] VITALS: BP 126/79; PULSE 78; PULSE 96; RESP 18; TEMP 36.7; O2SAT 95
[2022-11-30] MEDS: METFORMIN 500 MG TABLET PO ×2 (07:51→17:35)
[2022-11-30] MEDS: OXYCODONE 5 MG TABLET PO ×2 (07:51→19:16)
[2022-11-30] MEDS: LACTATED RINGERS 1000 ML 1,000 ML 75 ML IV (09:59)
[2022-11-30] MEDS: GABAPENTIN 100 MG CAPSULE PO ×3 (10:00→20:30)
[2022-11-30] MEDS: SODIUM CHLORIDE 0.9 % (FLUSH) 10 ML SYRINGE 5 ML IVF (10:00)
[2022-11-30 11:00] VITALS: BP 114/76; PULSE 82; RESP 18; TEMP 36.6; O2SAT 94
--- NOTE | 2022-11-30 12:29 | P.IMPN_ITS ---
Progress Note: A&P Assessment and plan (1) Diabetic foot ulcer with osteomyelitis: Problem details: 11/29/22: Excision of infected bone proximal phalanx right great toe, and rotational flap closure Status: Acute (2) Diabetic ulcer of foot associated with diabetes mellitus due to underlying condition, limited to breakdown of skin: Problem details: Left great toe. 11/29/22: Partial amputation left great toe. Status: Acute (3) Diabetes mellitus: Problem details: DMT2, poor control Status: Acute (4) Patient's noncompliance with other medical treatment and regimen due to financial hardship: Problem details: Piped Buttonhole Machine Operator has been consulted to help with patient financial status. Status: Acute Subjective Date Seen: 11/30/22 Interval history: Hospital day 3. Postoperative day#1 Patient brought to the OR 11/29/22where he had the following procedures done per Dr. Guanaco Bhat: 1. Partial amputation left great toe 2. Excision of infected bone proximal phalanx right great toe 3. Rotational flap closure right your foot He reports, doing fine today and understands he needs IV antibiotics until we have initial micro results. Blood glucose levels are normalizing. 129 fasting this morning. 126/79. Pulse 78. Resp is 18. Temp 98.1?. O2 sat 95% on room air CBC unremarkable. Pseudo hyponatremia resolved. Blood sugars have been 129, 255, 351, 258. A1c 12.7 CRP down trending. Wound culture shows large amount a Gram-negative elias in large amount a Gram-p ositive cocci. Multi organism infection expected in this diabetic foot wound. No MRSA. Exam Const: Vital Signs, click to edit/add: Vital Signs - 24 hr 11/29/22 13:06 11/29/22 14:00 11/29/22 15:10 Temperature Pulse Rate [Pulse Oximeter] 84 79 Respiratory Rate 16 14 Blood Pressure [Le ft Arm] 125/82 110/73 Blood Pressure [Ri ght Arm] Pulse Oximetry 97 97 96 Oxygen Delivery [facility] Room Air Room Air Room Air 11/29/22 15:10 11/29/22 20:55 11/29/22 23:00 Temperature 98 F 98.2 F Pulse Rate [Pulse Oximeter] 76 84 Respiratory Rate 16 18 18 Blood Pressure [Le ft Arm] 118/77 119/69 Blood Pressure [Ri ght Arm] Pulse Oximetry 96 95 94 Oxygen Delivery [facility] Room Air Room Air 11/30/22 03:00 11/30/22 07:00 11/30/22 07:00 Temperature 98.2 F Pulse Rate [Pulse Oximeter] 78 96 Respiratory Rate 18 18 18 Blood Pressure [Le ft Arm] 126/73 Blood Pressure [Ri ght Arm] Pulse Oximetry 96 95 Oxygen Delivery [facility] Room Air Room Air 11/30/22 07:00 Temperature 98.1 F Pulse Rate [Pulse Oximeter] 78 Respiratory Rate 18 Blood Pressure [Le ft Arm] Blood Pressure [Ri ght Arm] 126/79 Pulse Oximetry 95 Oxygen Delivery [facility] Room Air
[2022-11-30 13:09] LABS: Chloride* 102 mmol/L (96-114)
[2022-11-30 13:10] LABS: Potassium* 3.6 mmol/L (3.6-5.1); Sodium* 135 mmol/L (135-149)
[2022-11-30 13:13] LABS: Blood Urea Nitrogen* 13 mg/dL (7-30); Carbon Dioxide* 25 mmol/L (20-32); Creatinine* 0.7 mg/dL (0.5-1.5); Est. Creatinine Clearance* 104.54; Estimated Glomerular Filt Rate 112 ml/min; Glucose* 177 mg/dL (60-115)
[2022-11-30 13:14] LABS: Calcium* 8.1 mg/dL (8.4-10.6)
[2022-11-30 13:16] LABS: C Reactive Protein* 1.7 mg/dL (0.5-1.0)
--- NOTE | 2022-11-30 13:34 | P.PODPN_ITS ---
Podiatry-PN: Subj Subjective Time Seen by Provider: 13:30 Date Seen: 11/30/22 Interval history: Patient seen bedside postop day 1. He is doing well without complaint. Denies any pain. No current concerns. Progress Note: A&P Assessment and plan (1) Diabetic foot ulcer with osteomyelitis: Problem details: 11/29/22: Excision of infected bone proximal phalanx right great toe, and rotational flap closure Status: Acute (2) Diabetic ulcer of foot associated with diabetes mellitus due to underlying condition, limited to breakdown of skin: Problem details: Left great toe. 11/29/22: Partial amputation left great toe. Status: Acute Plan Assessment: Postop day 1 bilateral great toe surgery with underlying osteomyelitis right great toe. Plan: Continue current IV antibiotics until cultures are finalized. Clear margin was sent to pathology which will determine length of antibiotics. Bone at the level of the clear margin was quite healthy in appearance and I anti cipate oral antibiotics at discharge. Weightbearing as tolerated with a walker with pressure to the heels. He will need postsurgical shoes bilateral. Exam Narrative: Exam Narrative: General: No distress Vascular: Palpable pedal pulses bilateral. Neuro: Insensate to light touch. Derm: Incisions are well coapted no active bleeding. No areas of necrosis. Rotational flap on the right foot is viable with normal capillary fill time. No evidence of induration or fluctuance beneath the flap. Left foot incision with mild erythema in the lateral corner that was present prior to surgery and appears to be improved. Musculoskeletal: Partial amputation bilateral great toes. Wound cultures: Gram-negative rods and Gram-positive cocci with sensitivities pending. CRP: Decreased to 1.7 Const: Vital Signs, click to edit/add: Vital Signs - 24 hr 11/29/22 14:00 11/29/22 15:10 11/29/22 15:10 Temperature 98 F Pulse Rate [Pulse Oximeter] 79 76 Respiratory Rate 14 16 Blood Pressure [Le ft Arm] 110/73 118/77 Blood Pressure [Ri ght Arm] Pulse Oximetry 97 96 96 Oxygen Delivery [facility] Room Air Room Air Room Air 11/29/22 20:55 11/29/22 23:00 11/30/22 03:00 Temperature 98.2 F 98.2 F Pulse Rate [Pulse Oximeter] 84 78 Respiratory Rate 18 18 18 Blood Pressure [Le ft Arm] 119/69 126/73 Blood Pressure [Ri ght Arm] Pulse Oximetry 95 94 96 Oxygen Delivery [facility] Room Air Room Air 11/30/22 07:00 11/30/22 07:00 11/30/22 07:00 Temperature 98.1 F Pulse Rate [Pulse Oximeter] 96 78 Respiratory Rate 18 18 18 Blood Pressure [Le ft Arm] Blood Pressure [Ri ght Arm] 126/79 Pulse Oximetry 95 95 Oxygen Delivery Me [facility] Room Air Room Air 11/30/22 11:00 Temperature 98 F Pulse Rate [Pulse Oximeter] 82 Respiratory Rate 18 Blood Pressure [Le ft Arm] Blood Pressure [Ri ght Arm] 114/76 Pulse Oximetry 94 Oxygen Delivery Me [facility] Room Air Documenting provider has reviewed patient's vital signs: yes Podiatry-PN: Obj Labs Labs: Laboratory Results - last 24 hr 11/30/22 12:46 Sodium 135 Potassium 3.6 Chloride 102 Carbon Dioxide 25 BUN 13 Creatinine 0.7 Estimated Creat Clear 104.54 Estimated GFR 112 Glucose 177 H Calcium 8.1 L C-Reactive Protein 1.7 H
[2022-11-30 15:30] VITALS: BP 140/78; PULSE 82; RESP 16; TEMP 36.9; O2SAT 96
--- NOTE | 2022-11-30 16:08 | PC.NURSE ---
shift note: continue vanco and zosyn. LR at 75. Pt has 1 oxy for pain otherwise no compliants. BG 129/222. afebrile. CRP trending down. Pt working with PT at end of shift, activity increased from bed rest to WBAT to heel. good CMS to bilateral feet, no new swelling noted. good urinary output. pt denies concerns.
[2022-11-30 19:10] VITALS: BP 129/91; PULSE 88; RESP 18; TEMP 36.3; O2SAT 97
--- NOTE | 2022-11-30 22:54 | PC.NURSE ---
Shift [id number]- Patient is up to chair throughout shift after working with PT. He admits to some pain this evening, pain medication administered. Legs are elevated. Family at bedside and supportive this evening. Dressing remain clean, dry and intact.
[2022-11-30 23:00] VITALS: BP 112/71; PULSE 84; RESP 18; TEMP 36.6; O2SAT 95
[2022-12-01] MEDS: LACTATED RINGERS 1000 ML 1,000 ML 75 ML IV ×2 (00:40→14:11)
[2022-12-01] MEDS: PIPERACILLIN/TAZOBACTAM 3.375 GM in 0.9 % SODIUM CHLORIDE Mini-bag 100 ML IVPB ×4 (02:40→21:09)
[2022-12-01] MEDS: 0.9 % SODIUM CHLORIDE 250 ml IV (02:40)
[2022-12-01 03:00] VITALS: BP 125/80; PULSE 74; RESP 16; TEMP 36.5; O2SAT 98
--- NOTE | 2022-12-01 05:38 | PC.NURSE ---
[id number] Pt pleasant and cooperative, rating pain 4-6/10 throughout night, informed pt about his prn pain medications and pt declined each time. dressing to bilateral feel are C/D/I, ambulating ind in room, reinformed pt about heel weight bearing and pt states he's doing that.
[2022-12-01 08:30] VITALS: BP 144/71; PULSE 75; RESP 16; TEMP 36.6; O2SAT 97
[2022-12-01] MEDS: GABAPENTIN 100 MG CAPSULE PO ×3 (09:16→21:08)
[2022-12-01] MEDS: METFORMIN 500 MG TABLET PO ×2 (09:17→17:27)
[2022-12-01 12:40] VITALS: BP 128/77; PULSE 75; RESP 16; TEMP 36.8; O2SAT 95
--- NOTE | 2022-12-01 13:13 | PM.IMPN1 ---
Progress Note: A&P Assessment and plan (1) Diabetic foot ulcer with osteomyelitis: Problem details: - 11/29/22: Excision of infected bone proximal phalanx right great toe, and rotational flap closure with Dr. Bhat of Podiatry - Vanco and Zosyn initiated on admission, Vanco d/c'd on 12/01 upon culture results (Klebsiella and GBS), awaiting further sensitivities - will discharge home on oral antibiotics Status: Acute (2) Diabetic ulcer of foot associated with diabetes mellitus due to underlying condition, limited to breakdown of skin: Problem details: - 11/29/22: Partial amputation left great toe Status: Acute (3) Diabetes mellitus: Problem details: - poor control, A1C 12.7 - improved BG on Metformin, Levemir, SSI Status: Acute (4) Patient's noncompliance with other medical treatment and regimen due to financial hardship: Problem details: - Software Testing Specialist has been consulted to help discuss resources Status: Acute Plan - per above - Lovenox for ppx - home on oral antibiotics, likely 1-2 days Subjective Date Seen: 12/01/22 Interval history: Osmar is postop day 2 from a partial amputation of L great toe, excision of infected bone of proximal phalanx R great toe, rotational flap closure R foot with Dr. Currie of Podiatry. His BGs are improved on Metformin, long acting insulin, and SSI. He has no pain and this time, no complaints for hospitalist team. Exam Narrative: Exam Narrative: GEN: Alert and nontoxic, sitting comfortably in bed HEENT: EOMIs bilaterally, no scleral icterus CV: RRR, No concerning murmurs, rubs, or gallops R: LCTA bilaterally without concerning wheezing Ext: No concerning edema of ankles, bilateral feet are wrapped and not formally examined Skin: No concerning skin lesions or rashes on exposed skin Neuro: Nonfocal Psych: Appropriate Const: Vital Signs, click to edit/add: Vital Signs - 24 hr 11/30/22 15:30 11/30/22 15:30 11/30/22 19:10 Temperature 98.4 F 97.4 F L Pulse Rate [Left A pical] Pulse Rate [Pulse Oximeter] 82 88 Respiratory Rate 16 18 Blood Pressure [Le ft Arm] 140/78 H 129/91 H Blood Pressure [Ri ght Arm] Pulse Oximetry 96 96 97 Oxygen Delivery Me thod Room Air Room Air 11/30/22 23:00 11/30/22 23:00 12/01/22 03:00 Temperature 97.8 F 97.7 F Pulse Rate [Left A pical] Pulse Rate [Pulse Oximeter] 84 74 Respiratory Rate 18 18 16 Blood Pressure [Le ft Arm] Blood Pressure [Ri ght Arm] 112/71 125/80 Pulse Oximetry 95 95 98 Oxygen Delivery Me thod Room Air Room Air Room Air 12/01/22 08:30 12/01/22 08:30 12/01/22 12:40 Temperature 97.9 F 98.6 F Pulse Rate [Left A pical] 75 75 Pulse Rate [Pulse Oximeter] 75 75 Respiratory Rate 16 16 16 Blood Pressure [Le ft Arm] Blood Pressure [Ri ght Arm] 144/79 H 128/77 Pulse Oximetry 97 97 95 Oxygen Delivery Me thod Room Air Room Air Labs Labs: Laboratory Results - last 24 hr 11/30/22 12:46 Sodium 135 Potassium 3.6 Chloride 102 Carbon Dioxide 25 BUN 13 Creatinine 0.7 Estimated Creat Clear 104.54 Estimated GFR 112 Glucose 177 H Calcium 8.1 L C-Reactive Protein 1.7 H
--- NOTE | 2022-12-01 15:42 | PC.NURSE ---
Please see eMar for meds provided to pt on day shift. No dysphagia with meds. Evaluation by Dr. Salcedo, pt continues to deny pain and appears comfortable with scheduled neurontin throughout the day. Pleasant and cooperative with nsg cares. Vancomycin discontinued by Dr. Salcedo. Two doses of IV Zosyn infused per protocol. Pt has a good appetite. Dressings CDI bilateral feet, Dr. Bhat manages pt's dressing changes currently, no orders for nsg to change bandages. BG 92 at bkfst, pt asymptomatic for hypoglycemia, he received 5 units of scheduled Novolog insulin. Pt's BG 250 at lunch, pt received 5 units of scheduled novolog insulin and an additional 6 units of novolog insulin from SS. Mulu at bedside visiting with patient this afternoon. Late tray ordered. Report to Kamilah Cuellar RN for evening shift.
[2022-12-01 16:05] VITALS: BP 120/81; PULSE 78; RESP 16; TEMP 37; O2SAT 94
[2022-12-01 19:00] VITALS: BP 139/73; PULSE 83; RESP 16; TEMP 36.8; O2SAT 96
[2022-12-01] MEDS: ENOXAPARIN 40 MG/0.4 ML INJ SUBCUT (21:08)
--- NOTE | 2022-12-01 22:31 | PC.NURSE ---
Shift [id number]- Patient denies pain throughout shift. Bandages remain clean, dry and intact. He is found to be in the bathroom independently, without walker or assistance. He states he kept weight to heels. He is reminded to call before getting up and that it is best if he uses walker. He is agreeable. at bedside this afternoon and evening. Appetite intact.
[2022-12-01 23:45] VITALS: BP 140/70; PULSE 85; RESP 16; TEMP 37; O2SAT 97
[2022-12-02 03:00] VITALS: BP 127/85; PULSE 74; RESP 16; TEMP 36.8; O2SAT 95
[2022-12-02] MEDS: PIPERACILLIN/TAZOBACTAM 3.375 GM in 0.9 % SODIUM CHLORIDE Mini-bag 100 ML IVPB ×3 (03:22→14:50)
[2022-12-02] MEDS: 0.9 % SODIUM CHLORIDE 250 ml IV (03:22)
[2022-12-02] MEDS: LACTATED RINGERS 1000 ML 1,000 ML 75 ML IV (04:11)
--- NOTE | 2022-12-02 06:02 | PC.NURSE ---
Shift note ([id number]): The pt has been pleasant and cooperative.Able to communicated needs with Chinese; no forge hand needed. Denied chest pain and short of breath; Spo2 has been in the 90s in RA. Surgical dressing to bilateral foot have been C/D/I; The pt has been denying pain the his feet. The pt's spouse presented at the bedside throughout the night; loving and supporting to the patient. Using urinal in the bed throughout the night. The Pt stated that he use walker with heels touch when he walks to the BR. IVF LR has been running at 75 ml/hr Continuos; The pt's po intake has been adequate and urine out out has been adequate also; see I's and o's; Can we D/C IVF and saline lock? The pt had uneventful night
[2022-12-02 09:24] VITALS: BP 130/80; PULSE 74; RESP 18; TEMP 36.6; O2SAT 98
[2022-12-02] MEDS: METFORMIN 500 MG TABLET PO (09:27)
[2022-12-02] MEDS: GABAPENTIN 100 MG CAPSULE PO ×2 (09:27→14:50)
[2022-12-02 11:30] VITALS: BP 144/96; PULSE 79; RESP 18; TEMP 36.6; O2SAT 96
--- NOTE | 2022-12-02 14:17 | P.DS_ITS ---
DS: Providers Provider Date Seen: 12/02/22 Date of admission: 11/28/22 23:00 Primary care physician: Not a Local Provider Admitting Clinician: Royal Nguyễn MD Consults: Nutrition, PT, OT, Podiatry Attending Physician on discharge: Pham Salcedo MD Date of Discharge: 12/02/22 DS: Diagnosis Discharge Diagnosis (1) Diabetic foot ulcer with osteomyelitis: Status: Acute Problem details: - 11/29/22: Excision of infected bone proximal phalanx right great toe, and rotational flap closure with Dr. Bhat of Podiatry - Vanco and Zosyn initiated on admission, transitioned to Unasyn 12/01 (culture + for Klebsiella and GBS) - discharge home on Augmentin (2) Diabetic ulcer of foot associated with diabetes mellitus due to underlying condition, limited to breakdown of skin: Status: Acute Problem details: - 11/29/22: Partial amputation left great toe (3) Diabetes mellitus: Status: Acute Problem details: - poor control, A1C 12.7 - improved BG on Metformin - due to compliance concerns and financial constraints, discharge home on Metformin as monotherapy with recommendations for close PCP f/u (4) Patient's noncompliance with other medical treatment and regimen due to financial hardship: Status: Acute DS: Summary Hospital Course Hospital Course: 52 yo male with uncontrolled DM2, admitted on 11/28 for bilateral LE DM2 ulcers. He had a partial amputation of L great toe, in addition to excision of infected bone proximal phalanx right great toe and rotational flap closure with Dr. Bhat of Podiatry on 11/29. Postoperatively, he was managed with vancomycin and Zosyn until cultures resulted; he was then transitioned to Unasyn and discharge home on p.o. Augmentin. Patient understands the importance of close follow-up for his diabetic management, was given PCP information for local follow-up. He is also scheduled for an appointment with Dr. Bhat next week. Status at Discharge Functional status at discharge: uses cane/walker Time Spent with Patient Time attestation: Total time spent providing and/or coordinating discharge services: Time spent: Less than 30 minutes Exam Narrative: Exam Narrative: GEN: Alert and oriented, nontoxic HEENT: Normal external ears, EOMIs bilaterally, no scleral icterus CV: RRR, No concerning murmurs R: LCTA bilaterally without concerning wheezing, air movement adequate Ext: wwp, no concerning edema Skin: No concerning skin lesions or rashes on exposed skin, bilateral lower extremities are wrapped and not formally examined Neuro: Nonfocal Psych: Appropriate Const: Vital Signs, click to edit/add: Vital Signs - 24 hr 12/01/22 16:05 12/01/22 16:05 12/01/22 19:00 Temperature 98.6 F 98.2 F Pulse Rate [Left A pical] 78 83 Pulse Rate [Pulse Oximeter] Respiratory Rate 16 16 Blood Pressure [Le ft Arm] Blood Pressure [Ri ght Arm] 120/81 139/73 Pulse Oximetry 94 94 96 Oxygen Delivery Me thod Room Air Room Air Room Air 12/01/22 23:45 12/01/22 23:45 12/01/22 23:45 Temperature 98.6 F Pulse Rate [Left A pical] 85 85 Pulse Rate [Pulse Oximeter] 85 85 Respiratory Rate 16 16 16 Blood Pressure [Le ft Arm] Blood Pressure [Ri ght Arm] 140/70 H Pulse Oximetry 97 97 Oxygen Delivery Me thod Room Air Room Air 12/02/22 03:00 12/02/22 09:24 12/02/22 09:24 Temperature 98.2 F 98 F Pulse Rate [Left A pical] 74 Pulse Rate [Pulse Oximeter] 74 74 74 Respiratory Rate 16 18 18 Blood Pressure [Le ft Arm] Blood Pressure [Ri ght Arm] 127/85 130/80 Pulse Oximetry 95 98 Oxygen Delivery Me thod Room Air Room Air 12/02/22 09:24 12/02/22 11:30 Temperature 98 F Pulse Rate [Left A pical] Pulse Rate [Pulse Oximeter] 79 Respiratory Rate 18 18 Blood Pressure [Le ft Arm] 144/96 H Blood Pressure [Ri ght Arm] Pulse Oximetry 98 96 Oxygen Delivery Me thod Room Air Room Air Discharge Plan Discharge Disposition: Home, Self-Care Date of Admission: 11/28/22 23:00 Attending Provider on Discharge: Pham Salcedo Consulting Providers: Guanaco Bhat Primary Care Provider: Provider,Not a Local Condition: Improved Anticipated Discharge Date/Time: 12/02/22 13:25 Discharge Medications: New metformin 500 mg Tablet 500 mg PO BIDWM Qty: 60 0RF Rx Instructions: HF Voucher oxycodone 5 mg Tablet 5 mg PO Q6H PRN (Reason: Pain) Qty: 20 0RF Rx Instructions: HF Voucher amoxicillin-pot clavulanate 875-125 mg tablet 1 tab PO Q12H Qty: 20 0RF Rx Instructions: HF Voucher - instructions in Lao please Discharge Orders: Discharge Order (Routine); Ordered 12/02/22 Ordered By: Pham Salcedo Patient Education: Amoxicillin/Clavulanate Potassium (By mouth), Oxycodone, Rapid Release (By mouth), Metformin (By mouth), Deep Sedation (DC), Incision and Drainage (DC) Additional Instructions: You have THREE medications waiting for you at [place] (bring the coupons with you). You NEED TO MAKE AN APPOINTMENT at [facility] to help you with your diabetes (their phone # is [phone]). See Dr. Bhat next week as scheduled. Keep the dressings on your feet until that appointment. Tiene JANINA medicamentos esper?ndolo en [place] (traiga los cupones con usted). NECESITA HACER JOHN MAKENNA en [facility] para ayudarlo con horta diabetes (horta tel?fono # es [phone]). Chikis al Dr. Bhat la pr?xima semana seg?n lo programado. Mantenga los ap?sitos en miles pies hasta surjit makenna. Activity Level: Use Walker Activity Detail: per therapies Discharge Diet: Diabetic Follow Up Appointments: Provider,Not a Local [Primary Care Provider] - (Dr. Bhat wants to see you next week on Friday (December 11)) Guanaco Bhat DPM [Staff Physician] - 12/11/22 9:30 am (Indigo Lazcano for postop.) Forms: [employer] Info Instructions
--- NOTE | 2022-12-02 15:58 | PC.NURSE ---
Discharge: Patient pleasant and cooperative. Patient vitally stable, lungs clear, BS WNL, IV removed catheter intact. Patient independent weightbearing on bilateral knees. Patient denies pain. Patient urinating and tolerating regular diet. Discharge information and education given to patient with in-person interpreter translator. Patient understood that he needs to make and appointment with [facility] and get his insulin through them. Patient signed belongings sheet and discharge form. Patient left the floor by wheelchair to home at 1535.
== END 2022-12-02 15:35 | disposition home or self-care (01) | DRG 617 ==
LOC: ED 19:16 → MEDSURG 22:05
PROVIDERS: Family Medicine; Podiatrist; Admitting Provider Internal Medicine; Emergency Provider Family Medicine; Visit Provider Internal Medicine
PROC: 0J9R3ZZ Drainage of Left Foot Subcutaneous Tissue and Fascia, Percutaneous Approach (ICD-10-PCS; principal; 2022-11-29 09:00)
DX: E11.621 Type 2 diabetes mellitus with foot ulcer (principal); L02.612 Cutaneous abscess of left foot; L97.516 Non-pressure chronic ulcer of other part of right foot with bone involvement without evidence of necrosis; M86.171 Other acute osteomyelitis, right ankle and foot; E11.628 Type 2 diabetes mellitus with other skin complications; L97.522 Non-pressure chronic ulcer of other part of left foot with fat layer exposed; E11.69 Type 2 diabetes mellitus with other specified complication; E11.65 Type 2 diabetes mellitus with hyperglycemia; E11.42 Type 2 diabetes mellitus with diabetic polyneuropathy; Z91.190 Patient's noncompliance with other medical treatment and regimen due to financial hardship; Z79.84 Long term (current) use of oral hypoglycemic drugs; Z79.4 Long term (current) use of insulin; E78.5 Hyperlipidemia, unspecified; B96.1 Klebsiella pneumoniae [K. pneumoniae] as the cause of diseases classified elsewhere; B95.1 Streptococcus, group B, as the cause of diseases classified elsewhere; Z89.421 Acquired absence of other right toe(s)
CPT/HCPCS: 36415; 73660; 80048; 80053; 82947; 82962; 83036; 83605; 83735; 83880; 84075; 84100; 84484; 85025; 85610; 86140; 87070; 87075; 87081; 87186; 87205; 88305; 88307; 88311; 93005; 97110; 97116; 97162; 99285; T1013; A9270; J0665; J1650; J2543; J3370; J7050; J7120

== ENCOUNTER 2023-01-01 19:10 | Emergency (ER) | payer OTHER, SELFPAY ==
[2023-01-01] VITALS (14 sets, daily range): BP systolic 127–154; BP diastolic 72–94; PULSE 78–89; RESP 16–20; TEMP 36.3–36.7; O2SAT 93–98; BMI 24.9
--- NOTE | 2023-01-01 19:28 | ED_ITS ---
HPI - Extremity Injury (Lower) General Time Seen by Provider: 19:28 Date Seen: 01/01/23 Chief Complaint: Extremity Pain/Injury, Lower Stated Complaint: L foot needs stitches redone Time Seen by Provider: 01/01/23 19:24 Source: patient, family ( is with), RN notes reviewed and old records reviewed Mode of arrival: ambulatory Limitations: no limitations History of Present Illness HPI Narrative: Patient is a 52-year-old diabetic male coming in with concern of infected foot and need for stitches out on the other foot. It is difficult to ascertain but it sounds as if his feels the right foot is a little more red and swollen at the site of the prior amputation. He maybe notes a little pain. He does have stitches still in the left toe site and missed his appointment earlier today to have these removed. He reports he did complete the antibiotics that he was given on discharge from the hospital, review of the chart shows this to be Augmentin. He was hospitalized November 28 through the for diabetic foot ulcer with osteomyelitis excision of the proximal phalanx of the right great toe in a rotational flap for closure. He also had a partial amputation for left great toe ulcer. The culture was positive for Klebsiella and group B strep. There have been no fevers no sweats, no systemic symptoms such as headache or nausea. Related Data Previous Rx's Medication Instructions Recorded amoxicillin 875 mg-potassium 1 tab PO Q12H #20 tabs 12/02/22 clavulanate 125 mg tablet metformin 500 mg tablet 500 mg PO BIDWM #60 tabs 12/02/22 oxycodone 5 mg tablet 5 mg PO Q6H PRN Pain #20 tabs 12/02/22 amoxicillin 875 mg-potassium 1 tab PO BID #20 tabs 01/01/23 clavulanate 125 mg tablet metformin 1,000 mg tablet 1,000 mg PO BID #60 tabs 01/01/23 metformin 1,000 mg tablet 1,000 mg PO BID #60 tabs 01/01/23 Allergies Allergy/AdvReac Type Severity Reaction Status Date / Time No Known Drug Allergies Allergy Verified 12/24/21 12:40 Review of Systems Narrative: As per HPI. [facility] Medical History Personal history of diabetic foot ulcer ?Z86.31 - Personal history of diabetic foot ulcer (ICD-10) Erectile dysfunction ?N52.9 - Male erectile dysfunction, unspecified (ICD-10) Hyperlipidemia ?E78.5 - Hyperlipidemia, unspecified (ICD-10) Patient's noncompliance with other medical treatment and regimen due to financial hardship ?Z91.190 - Patient's noncompliance with other medical treatment and regimen due to financial hardship (ICD-10) Diabetic neuropathy ?E11.40 - Type 2 diabetes mellitus with diabetic neuropathy, unspecified (ICD-10) Diabetes mellitus ?E11.9 - Type 2 diabetes mellitus without complications (ICD-10) Surgical History History of partial amputation of toe of right foot ?Z89.421 - Acquired absence of other right toe(s) (ICD-10) Family History (Updated 11/28/22 @ 23:41 by Royal Nguyễn MD) Mother Diabetes Father Diabetes Social History Narrative: . Lives with . They have 4 children. Swiss is his primary language. Speaks Swazi fairly fluently. , Mulu, does not speak Swazi fluently. Working outside the home. Does not have a primary care physician. Cannot afford medications, therefore does not take any medications even though he warrants medications to manage his underlying medical conditions. Requests full resuscitation in the event of cardiopulmonary demise. Designates his , Mulu, as power of deputy prosecuting attorney for health should that be required. What is your current living situation?: I presently have a place to live Problems where you live: no known problems Problems where you live details: NA In the past 12 months, utilities in danger of being shut off: no In the past 12 mos, have been you worried that your food would run out before you had money to buy more?: never true In the past 12 mos, the food you bought just didn't last and you didn't have money to buy more?: never true Highest level of school completed/degree received: don't know Smoking Status: Never smoker How often do you have a drink containing alcohol: monthly or less How many standard drinks containing alcohol do you have on a typical day: 1 or 2 How often do you have six or more drinks on one occasion: Never AUDIT-C Alcohol total score: 1 Non-prescribed substance use: denies use Caffeine: Yes How often does anyone, including family, friends and others, physically hurt you : never How often does anyone, including family, friends and others, insult or talk down to you: never How often does anyone, including family, friends and others, threaten you with harm: never How often does anyone, including family, friends and others, scream or curse at you: never Gender Identity: male service: No Exam Const: Vital Signs, click to edit/add: Vital Signs - 24 hr 01/01/23 19:22 01/01/23 20:15 01/01/23 20:30 Temperature 98.0 F Pulse Rate 86 82 Pulse Rate [Left P ulse Oximeter] 89 Respiratory Rate 16 Blood Pressure Blood Pressure [Ri ght Upper Arm] 129/78 Pulse Oximetry 98 96 94 Oxygen Delivery Me od Room Air 01/01/23 20:31 01/01/23 20:45 01/01/23 21:00 Temperature Pulse Rate 84 80 78 Pulse Rate [Left P ulse Oximeter] Respiratory Rate Blood Pressure 129/72 Blood Pressure [Ri ght Upper Arm] Pulse Oximetry 94 93 97 Oxygen Delivery Me thod 01/01/23 21:02 Temperature Pulse Rate 79 Pulse Rate [Left P ulse Oximeter] Respiratory Rate Blood Pressure 127/76 Blood Pressure [Ri ght Upper Arm] Pulse Oximetry 95 Oxygen Delivery Me thod Patient is alert, interactive, no apparent distress. Sclera clear, conjugate gaze, atraumatic face. Neck is supple, no palpable masses. Lungs are clear with good air entry, no tachypnea. CV regular rate and rhythm, no murmur, normal S1 and S2. Abdomen is soft. Bandages are over the medial portion of both feet. Bandages were removed. There is a line of sutures covering the stump of the remainder of the left great toe. There is no swelling, no erythema, no discharge. Stitches look like they certainly are ready to be removed. The right great toe stump area/1st metatarsal area is swollen, erythematous, warm. There is no drainage, no drainage on the bandages. This certainly looks to have some level of infection in it. He is not significantly tender when I palpate. This does not extend up onto the foot or into the other toes. Documenting provider has reviewed patient's vital signs: yes Course Course Hospital Course: Will be obtaining plain film of the right foot is that is what I have available at this time, clinically does not seem to need any emergent MRI which I could not provide any way. Will get labs including inflammatory markers and CBC. Need to rule out underlying osteomyelitis as best I can this evening, definitely appears to have cellulitis at minimum. Reevaluation(s) Time of Reevaluation #1: 21:14 Reevaluation #1: Reviewed that the x-ray is not showing any changes of osteomyelitis, labs are reassuring minus elevated glucose. We are going to try oral antibiotics, he will need close outpatient follow-up with Podiatry. Time of Reevaluation #2: 21:29 Reevaluation #2: Nursing staff just told me that the patient is out of his metformin and is requesting a refill. He requested a higher dose, I do think he can go up on his metformin and will write for that. He needs follow-up and will update the discharge to reflect this. Consultations Consultation #1: Did speak with Dr. Hurst briefly on this case. He does think we should give a trial of oral outpatient antibiotics with close follow-up with Podiatry. Time: 21:01 Vital Signs Vital signs: Initial Vital Signs Temperature 98.0 F 01/01/23 19:22 Temperature Source Temporal Artery Scan 01/01/23 19:22 Pulse Rate 89 01/01/23 19:22 Respiratory Rate 16 01/01/23 19:22 Blood Pressure 129/78 01/01/23 19:22 Blood Pressure Mean 95 01/01/23 19:22 Blood Pressure Position Sitting 01/01/23 19:22 Pulse Oximetry 98 01/01/23 19:22 Oxygen Delivery Method Room Air 01/01/23 19:22 Vital Signs Temperature 98.0 F 01/01/23 19:22 Pulse Rate 89 01/01/23 19:22 Respiratory Rate 16 01/01/23 19:22 Blood Pressure 129/78 01/01/23 19:22 Pulse Oximetry 98 01/01/23 19:22 Oxygen Delivery Method Room Air 01/01/23 19:22 Temperature 98.0 F 08/23/23 19:22 Pulse Rate 79 01/01/23 21:02 Respiratory Rate 16 01/01/23 19:22 Blood Pressure 127/76 01/01/23 21:02 Pulse Oximetry 95 01/01/23 21:02 Oxygen Delivery Method Room Air 01/01/23 19:22 MDM - Extremity Injury (Lower) Lab Data Attestation: I reviewed the patient's lab results. Labs: Lab Results 01/01/23 Range/Units 19:51 WBC 8.15 (4.50-11.00) K/uL RBC 5.00 (4.30-5.90) m/uL Hgb 14.5 (13.5-17.5) gm/dL Hct 41.3 (37.0-53.0) % MCV 83 (80-100) fL MCH 29 (26-34) pg MCHC 35 (32-36) gm/dL RDW Coeff of Abrahan 12.1 (11.5-15.5) % Plt Count 283 (140-440) K/uL Neut % (Auto) 61.5 (42.0-72.0) % Lymph % (Auto) 25.9 (20-44) % [place] % (Auto) 9.9 (0.0-11.0) % Eos % (Auto) 2.0 (0.0-7.0) % Baso % (Auto) 0.5 (0.0-3.0) % Neut # (Auto) 5.01 (1.7-7.0) K/uL Lymph # (Auto) 2.11 (0.90-2.90) K/uL [place] # (Auto) 0.80 (0.00-0.90) K/UL Eos # (Auto) 0.16 (0.00-0.50) K/uL Baso # (Auto) 0.04 (0.00-0.30) K/uL Abs Immat Gran (auto) 0.02 (0.00-0.30) K/uL Imm/Tot Granulo (auto) 0.2 % ESR 15 (2-15) mm/hr Sodium 133 L (135-149) mmol/L Potassium 4.1 (3.6-5.1) mmol/L Chloride 99 (96-114) mmol/L Carbon Dioxide 25 (20-32) mmol/L Anion Gap 9 (7-15) mEq/L BUN 20 (7-30) mg/dL Creatinine 1.0 (0.5-1.5) mg/dL Estimated Creat Clear 73.18 Estimated GFR 91 ml/min Glucose 350 H (60-115) mg/dL Lactate 1.7 (0.5-1.9) mmol/L Total Bilirubin 0.9 (0.1-1.5) mg/dL AST 24 (12-35) U/L ALT 29 (4-50) U/L Alkaline Phosphatase 132 (40-150) U/L C-Reactive Protein 0.7 (0.5-1.0) mg/dL Total Protein 7.5 (6.0-8.3) g/dL Albumin 4.2 (3.3-5.0) g/dL Imaging Data XR right foot: Attestation: I have reviewed the pertinent imaging results. Radiologist's impression: Patient: VENKAT ELDRIDGE Facility:?[facility] Patient ID:?[id number] Site Patient ID:?[id number]. Site :?[id number] Study:?XRay Extremity Right Foot 3 views-01/01/2023 8:09:25 PM Ordering Physician:?Arnol Alvarez Final Report: INDICATION: Increased swelling and 1st right toe amputation TECHNIQUE: X-ray right foot, three views COMPARISON: X-ray right foot 11/28/2022 FINDINGS/IMPRESSION: There are postsurgical changes right 1st toe amputation. There is overlying soft tissue swelling. No obvious findings to suggest osteomyelitis, however if there is persistent clinical concern, MRI is more sensitive. Dictated by Shellie Mercedes MD @ 01/01/2023 8:30:56 PM Dictated by: Shellie Mercedes MD @ 01/01/2023 20:31:01 (Electronic Signature) Critical Care Time Critical Care Time Critical Care Time: No Discharge Plan Discharge Clinical Impression: Uncontrolled diabetes mellitus, Encounter for removal of sutures, Cellulitis of foot, right Patient Disposition: Home, Self-Care Condition: Stable Instructions: Cellulitis (ED) Additional Instructions: Need to take antibiotics as prescribed, next dose due tomorrow. Do recommend trying to elevate this right foot is much as you are able to. Need to follow up with Podiatry (Dr. Bhat) as soon as you are able to. Metformin has been refilled at a higher dosage, you also need to return to primary care provider such as [facility] for further maintenance and treatment of your diabetes. The ER will not be giving further refills on your chronic medications. Prescriptions: New amoxicillin-pot clavulanate 875-125 mg tablet 1 tab PO BID Qty: 20 0RF metformin 1,000 mg tablet 1,000 mg PO BID Qty: 60 2RF metformin 1,000 mg tablet 1,000 mg PO BID Qty: 60 0RF No Action metformin 500 mg Tablet 500 mg PO BIDWM Qty: 60 0RF Rx Instructions: HF Voucher oxycodone 5 mg Tablet 5 mg PO Q6H PRN (Reason: Pain) Qty: 20 0RF Rx Instructions: HF Voucher amoxicillin-pot clavulanate 875-125 mg tablet 1 tab PO Q12H Qty: 20 0RF Rx Instructions: HF Voucher - instructions in Swiss please Follow Up/Referrals: Provider,Not a Local [Primary Care Provider] - Stand Alone Forms: [employer] Info Instructions
--- NOTE | 2023-01-01 19:39 | CRLHL7_ITS ---
For Patients: As a result of the Century Cures Act, medical imaging exams and procedure reports are released immediately into your electronic medical record. You may view this report before your referring provider. If you have questions, please contact your health care provider. INDICATION: Increased swelling and 1st right toe amputation TECHNIQUE: X-ray right foot, three views COMPARISON: X-ray right foot 11/28/2022 FINDINGS/IMPRESSION: There are postsurgical changes right 1st toe amputation. There is overlying soft tissue swelling. No obvious findings to suggest osteomyelitis, however if there is persistent clinical concern, MRI is more sensitive. Dictated by Shellie Mercedes MD @ 01/01/2023 8:30:56 PM Dictated by: Shellie Mercedes MD @ 01/01/2023 20:31:01 (Electronically Signed)
[2023-01-01 19:56] LABS: Lactate* 1.7 mmol/L (0.5-1.9)
[2023-01-01 19:57] LABS: Basophils Absolute Auto 0.04 K/uL (0.00-0.30); Basophils Percent Auto 0.5 % (0.0-3.0); Eosinophils Absolute Auto 0.16 K/uL (0.00-0.50); Hematocrit 41.3 % (37.0-53.0); Hemoglobin* 14.5 gm/dL (13.5-17.5); Immature Granulocytes Abs Auto 0.02 K/uL (0.00-0.30); Immature Granulocytes Pct Auto 0.2 %; Lymphocytes Absolute Auto 2.11 K/uL (0.90-2.90); Lymphocytes Percent Auto 25.9 % (20-44); Mean Corpuscular HGB Conc 35 gm/dL (32-36); Mean Corpuscular Hemoglobin 29 pg (26-34); Mean Corpuscular Volume 83 fL (80-100); Monocytes Percent Auto 9.9 % (0.0-11.0); Neutrophils Absolute Auto 5.01 K/uL (1.7-7.0); Neutrophils Percent Auto 61.5 % (42.0-72.0); Platelet Count* 283 K/uL (140-440); RDW Coefficient of Variation % 12.1 % (11.5-15.5); White Blood Count* 8.15 K/uL (4.50-11.00)
[2023-01-01 20:10] LABS: Albumin* 4.2 g/dL (3.3-5.0); Chloride* 99 mmol/L (96-114); Sodium* 133 mmol/L (135-149)
[2023-01-01 20:11] LABS: Potassium* 4.1 mmol/L (3.6-5.1)
[2023-01-01 20:13] LABS: Alanine Aminotransferase* 29 U/L (4-50); Alkaline Phosphatase* 132 U/L (40-150); Anion Gap 9 mEq/L (7-15); Aspartate Amino Transferase* 24 U/L (12-35); Bilirubin Total* 0.9 mg/dL (0.1-1.5); Blood Urea Nitrogen* 20 mg/dL (7-30); Carbon Dioxide* 25 mmol/L (20-32); Est. Creatinine Clearance* 73.18; Estimated Glomerular Filt Rate 91 ml/min; Total Protein* 7.5 g/dL (6.0-8.3)
[2023-01-01 20:14] LABS: Glucose* 350 mg/dL (60-115); Slide Review Reflex No
[2023-01-01 20:16] LABS: C Reactive Protein* 0.7 mg/dL (0.5-1.0)
[2023-01-01 20:44] LABS: Erythrocyte SedimentationRate* 15 mm/hr (2-15)
[2023-01-01] MEDS: AMOXICILLIN/CLAVULANATE 875 mg/125 mg TABLET PO (21:17)
--- NOTE | 2023-01-01 21:31 | ED.NURSE ---
6 stitches seen, confirmed with MD. 6 stitches removed successfully.
--- NOTE | 2023-01-01 22:04 | ED.NURSE ---
Pt given D/C information, Azeri interrupter used. Pt had no further questions.
[2023-01-03 19:36] LABS: Calcium* 9.3 mg/dL (8.4-10.6)
== END 2023-01-01 22:05 | disposition home or self-care (01) ==
PROVIDERS: Emergency Provider Family Medicine
DX: L03.116 Cellulitis of left lower limb (principal); E11.65 Type 2 diabetes mellitus with hyperglycemia; Z48.02 Encounter for removal of sutures
CPT/HCPCS: 36415; 73630; 80053; 83605; 85025; 85651; 86140; 99284; A9270

== ENCOUNTER 2023-02-22 11:05 | Emergency (ER) | payer OTHER, SELFPAY ==
[2023-02-22 11:11] VITALS: BP 127/77; PULSE 92; RESP 18; TEMP 36.4; O2SAT 98; BMI 27.5
--- NOTE | 2023-02-22 11:48 | CRLHL7_ITS ---
For Patients: As a result of the Cures Act, medical imaging exams and procedure reports are released immediately into your electronic medical record. You may view this report before your referring provider. If you have questions, please contact your health care provider. Indication: Infection. Technique: Three views left 3rd to. Comparison: None. Findings/Impression: No acute displaced fracture or malalignment. No discrete erosions. Amputation of the 1st digit. Mild soft tissue swelling. No discrete subcutaneous gas. Joint spaces are maintained. Bony mineralization is age appropriate. Dictated by Hesham Quiros MD @ 02/22/2023 12:56:18 PM (Electronically Signed)
--- NOTE | 2023-02-22 11:53 | ED.GENADULT ---
HPI - General Adult General Chief complaint: Extremity Pain/Injury, Lower Stated complaint: infection on foot Time Seen by Provider: 02/22/23 11:28 Source: patient and family Mode of arrival: ambulatory Limitations: no limitations History of Present Illness HPI narrative: 52-year-old male presenting today with concerns about toe infection. Patient has a history of uncontrolled diabetes secondary to financial barrier to taking his medications, as well as bilateral great toe amputations. He states that he saw some pus coming out of the 3rd toe on the left. The nail turned dark. He states that this is how his toe infection started on the great toes as well. He states that he manages his sugar by drinking water in exercise. He also takes his 's metformin on and off. His tells me that he likes to drink soda and eat sweets and that he does not listen to her when she tells him that he needs to monitor his sugars. He states that he has been without insurance for most of this year. He had a prescription for metformin this summer which he used and has not had any medications since. He states that he has not seen a primary care provider for about a year. Related Data Previous Rx's Medication Instructions Recorded metformin 500 mg tablet 500 mg PO BIDWM #60 tabs 12/02/22 metformin 1,000 mg tablet 1,000 mg PO BID #60 tabs 01/01/23 metformin 1,000 mg tablet 1,000 mg PO BID #60 tabs 01/01/23 cephalexin 500 mg capsule 500 mg PO TID 7 days #21 caps 02/22/23 Allergies Allergy/AdvReac Type Severity Reaction Status Date / Time No Known Drug Allergies Allergy Verified 12/24/21 12:40 Review of Systems Status of ROS: Reports: 10 or more systems reviewed and unremarkable except as noted in History and below [facility] Medical History Personal history of diabetic foot ulcer ?Z86.31 - Personal history of diabetic foot ulcer (ICD-10) Erectile dysfunction ?N52.9 - Male erectile dysfunction, unspecified (ICD-10) Hyperlipidemia ?E78.5 - Hyperlipidemia, unspecified (ICD-10) Patient's noncompliance with other medical treatment and regimen due to financial hardship ?Z91.190 - Patient's noncompliance with other medical treatment and regimen due to financial hardship (ICD-10) Diabetic neuropathy ?E11.40 - Type 2 diabetes mellitus with diabetic neuropathy, unspecified (ICD-10) Diabetes mellitus ?E11.9 - Type 2 diabetes mellitus without complications (ICD-10) Surgical History History of partial amputation of toe of right foot ?Z89.421 - Acquired absence of other right toe(s) (ICD-10) Family History Mother Diabetes Father Diabetes Social History Narrative: . Lives with . They have 4 children. Hebrew is his primary language. Speaks Tanzanian fairly fluently. , Mulu, does not speak Tanzanian fluently. Working outside the home. Does not have a primary care physician. Cannot afford medications, therefore does not take any medications even though he warrants medications to manage his underlying medical conditions. Requests full resuscitation in the event of cardiopulmonary demise. Designates his , Mulu, as power of civil attorney for health should that be required. What is your current living situation?: I presently have a place to live Problems where you live: no known problems Problems where you live details: NA In the past 12 months, utilities in danger of being shut off: no In past 12 months, lack of transportation kept you from medical appts, meetings, work, or getting things needed for daily living: no In the past 12 mos, have been you worried that your food would run out before you had money to buy more?: never true In the past 12 mos, the food you bought just didn't last and you didn't have money to buy more?: never true Highest level of school completed/degree received: don't know Smoking Status: Never smoker How often do you have a drink containing alcohol: monthly or less How many standard drinks containing alcohol do you have on a typical day: 1 or 2 How often do you have six or more drinks on one occasion: Never AUDIT-C Alcohol total score: 1 Non-prescribed substance use: denies use Caffeine: Yes How often does anyone, including family, friends and others, physically hurt you: never How often does anyone, including family, friends and others, insult or talk down to you: never How often does anyone, including family, friends and others, threaten you with harm: never How often does anyone, including family, friends and others, scream or curse at you: never Gender Identity: male service: No Exam Narrative: Exam Narrative: Well-nourished well-developed patient in no acute distress. Alert and oriented x3. Answers questions appropriately. Mood and affect are appropriate. Thoughts are goal oriented and rational. No tangential or magical thinking noted. Patient speaks in full sentences without needing to catch his breath. HEENT: Normocephalic atraumatic. Pupils are equally round reactive to light. Extraocular muscles are intact. Conjunctivae are moist without any icterus noted. Moist mucous membranes. Cardiovascular: Heart is regular rate and rhythm S1 and S2 are present without any murmurs. Lungs: Clear to auscultation bilaterally no wheezes rhonchi or rales are appreciated. Patient takes deep breaths without any discomfort. Abdomen: Soft and nontender nondistended with normal bowel sounds. Extremities: Bilateral lower extremities are without edema. Amputation of bilateral great toes. Third toe on the right has what appears to be a subungual hematoma with cracked dried skin around the top of the nail. I do not see any pus. The toe is not red or hot to touch. Skin: Well perfused without any obvious rashes. Const: Vital Signs, click to edit/add: Vital Signs - 24 hr 02/22/23 11:11 Temperature 97.6 F Pulse Rate [Pulse Oximeter] 92 Respiratory Rate 18 Blood Pressure [Ri ght Upper Arm] 127/77 Pulse Oximetry 98 Oxygen Delivery Me thod Room Air Course Course ED Course: X-ray of the foot was done, read by me, does not show any evidence of osteomyelitis. Bedside Accu-Chek was 484. Because of his poorly controlled diabetes for about a year I did go ahead and do some blood work today: CBC and chemistries were unremarkable. Lactate was elevated at 3.3. While in the ED today he had received 10 units of regular insulin, 1 L of normal saline , and IV Rocephin. Although the toe does not look overtly infected, patient's assures me that the 1st sign of infection is when the skin starts to flake off and the nail turns dark. She is quite concerned because this is the exact same thing that happened before the other toes were amputated. Therefore, that is why we treated today. We were able to get him a 1 month supply of free medications through [facility]. Will put him on Lantus 15 units b.i.d., metformin 500 mg p.o. daily and glipizide 5 mg daily which are all medications that he was on a year ago. We also got him information about the [place] emergency insulin program where he can get a month's worth of insulin for free if he runs out. Through this program he should also be able to get help to get a more steady stream of insulin. Lastly we provided him information about [facility] and how to get medications through them as well. Vital Signs Vital signs: Initial Vital Signs Temperature 97.6 F 02/22/23 11:11 Temperature Source Temporal Artery Scan 02/22/23 11:11 Pulse Rate 92 02/22/23 11:11 Respiratory Rate 18 02/22/23 11:11 Blood Pressure 127/77 02/22/23 11:11 Blood Pressure Mean 93 02/22/23 11:11 Blood Pressure Position Supine 02/22/23 11:11 Pulse Oximetry 98 02/22/23 11:11 Oxygen Delivery Method Room Air 02/22/23 11:11 Vital Signs Temperature 97.6 F 02/22/23 11:11 Pulse Rate 92 02/22/23 11:11 Respiratory Rate 18 02/22/23 11:11 Blood Pressure 127/77 02/22/23 11:11 Pulse Oximetry 98 02/22/23 11:11 Oxygen Delivery Method Room Air 02/22/23 11:11 Temperature 97.6 F 02/22/23 11:11 Pulse Rate 92 02/22/23 11:11 Respiratory Rate 18 02/22/23 11:11 Blood Pressure 127/77 02/22/23 11:11 Pulse Oximetry 98 02/22/23 11:11 Oxygen Delivery Method Room Air 02/22/23 11:11 Medical Decision Making MDM Narrative Medical decision making narrative: 52-year-old male with the following issues: 1. Potential infection of the 3rd left toe. Will place the patient on Keflex t.i.d.. 2. Poorly controlled diabetes secondary to financial barriers to getting his medications. Plan per above. 3. Lack of primary care follow-up: Urged establishing care with a new primary care provider. Medical Records Medical records reviewed: Yes I reviewed the patient's medical records Lab Data Lab results reviewed: Yes I reviewed the patient's lab results Labs: Lab Results 02/22/23 Range/Units 12:10 WBC 7.08 (4.50-11.00) K/uL RBC 5.29 (4.30-5.90) m/uL Hgb 15.3 (13.5-17.5) gm/dL Hct 44.8 (37.0-53.0) % MCV 85 (80-100) fL MCH 29 (26-34) pg MCHC 34 (32-36) gm/dL RDW Coeff of Abrahan 12.3 (11.5-15.5) % Plt Count 310 (140-440) K/uL Neut % (Auto) 68.8 (42.0-72.0) % Lymph % (Auto) 22.5 (20-44) % [place] % (Auto) 6.9 (0.0-11.0) % Eos % (Auto) 1.4 (0.0-7.0) % Baso % (Auto) 0.3 (0.0-3.0) % Neut # (Auto) 4.87 (1.7-7.0) K/uL Lymph # (Auto) 1.59 (0.90-2.90) K/uL [place] # (Auto) 0.50 (0.00-0.90) K/UL Eos # (Auto) 0.10 (0.00-0.50) K/uL Baso # (Auto) 0.02 (0.00-0.30) K/uL Abs Immat Gran (auto) 0.01 (0.00-0.30) K/uL Imm/Tot Granulo (auto) 0.1 % VBG pH 7.386 (7.32-7.43) VBG pCO2 37 L (40-50) mmHG VBG pO2 68.0 H (25-47) mmHG VBG HCO3 22 (21-28) mmol/L Sodium 135 (135-149) mmol/L Potassium 4.3 (3.6-5.1) mmol/L Chloride 102 (96-114) mmol/L Carbon Dioxide 20 (20-32) mmol/L Anion Gap 13 (7-15) mEq/L BUN 22 (7-30) mg/dL Creatinine 0.6 (0.5-1.5) mg/dL Estimated Creat Clear 121.96 Estimated GFR 117 ml/min Glucose 440 H* (60-115) mg/dL Lactate 3.3 H (0.5-1.9) mmol/L Calcium 9.1 (8.4-10.6) mg/dL Total Bilirubin 0.7 (0.1-1.5) mg/dL Direct Bilirubin 0.0 (0.0-0.5) mg/dL AST 26 (12-35) U/L ALT 26 (4-50) U/L Alkaline Phosphatase 158 H (40-150) U/L Total Protein 7.2 (6.0-8.3) g/dL Albumin 4.1 (3.3-5.0) g/dL Imaging Data X-ray toe: Attestation: I have reviewed the pertinent imaging results. Radiologist's impression: Three views left 3rd to. Comparison: None. Findings/Impression: No acute displaced fracture or malalignment. No discrete erosions. Amputation of the 1st digit. Mild soft tissue swelling. No discrete subcutaneous gas. Joint spaces are maintained. Bony mineralization is age appropriate. Discharge Plan Discharge Clinical Impression: Uncontrolled diabetes mellitus, Infection of toe Patient Disposition: Home, Self-Care Condition: Stable Additional Instructions: You must establish care with a primary care provider in the clinic. Return to the ER if you feel like you toe is getting worse. Make sure to grain picker your insulin, metformin and glipizide at [facility]. You will also be prescribed an antibiotic to take. Prescriptions: New cephalexin 500 mg capsule 500 mg PO TID 7 Days Qty: 21 0RF No Action metformin 500 mg Tablet 500 mg PO BIDWM Qty: 60 0RF Rx Instructions: HF Voucher metformin 1,000 mg tablet 1,000 mg PO BID Qty: 60 2RF metformin 1,000 mg tablet 1,000 mg PO BID Qty: 60 0RF Follow Up/Referrals: Provider,Not a Local [Primary Care Provider] - Stand Alone Forms: [facility] Info Instructions
[2023-02-22 12:21] LABS: HCO3 VBG 22 mmol/L (21-28); Lactate* 3.3 mmol/L (0.5-1.9); PCO2 VBG 37 mmHG (40-50); pH VBG 7.386 (7.32-7.43)
[2023-02-22 12:33] LABS: Basophils Absolute Auto 0.02 K/uL (0.00-0.30); Basophils Percent Auto 0.3 % (0.0-3.0); Eosinophils Percent Auto 1.4 % (0.0-7.0); Hematocrit 44.8 % (37.0-53.0); Hemoglobin* 15.3 gm/dL (13.5-17.5); Immature Granulocytes Abs Auto 0.01 K/uL (0.00-0.30); Immature Granulocytes Pct Auto 0.1 %; Lymphocytes Absolute Auto 1.59 K/uL (0.90-2.90); Lymphocytes Percent Auto 22.5 % (20-44); Mean Corpuscular HGB Conc 34 gm/dL (32-36); Mean Corpuscular Hemoglobin 29 pg (26-34); Mean Corpuscular Volume 85 fL (80-100); Monocytes Percent Auto 6.9 % (0.0-11.0); Neutrophils Absolute Auto 4.87 K/uL (1.7-7.0); Neutrophils Percent Auto 68.8 % (42.0-72.0); Platelet Count* 310 K/uL (140-440); RDW Coefficient of Variation % 12.3 % (11.5-15.5); Red Blood Count 5.29 m/uL (4.30-5.90); White Blood Count* 7.08 K/uL (4.50-11.00)
[2023-02-22 12:34] LABS: Slide Review Reflex No
[2023-02-22 12:45] LABS: Chloride* 102 mmol/L (96-114)
[2023-02-22 12:46] LABS: Albumin* 4.1 g/dL (3.3-5.0); Potassium* 4.3 mmol/L (3.6-5.1); Sodium* 135 mmol/L (135-149)
[2023-02-22 12:48] LABS: Anion Gap 13 mEq/L (7-15); Carbon Dioxide* 20 mmol/L (20-32); Creatinine* 0.6 mg/dL (0.5-1.5); Est. Creatinine Clearance* 121.96; Estimated Glomerular Filt Rate 117 ml/min
[2023-02-22 12:49] LABS: Alanine Aminotransferase* 26 U/L (4-50); Alkaline Phosphatase* 158 U/L (40-150); Aspartate Amino Transferase* 26 U/L (12-35); Bilirubin Total* 0.7 mg/dL (0.1-1.5); Blood Urea Nitrogen* 22 mg/dL (7-30); Calcium* 9.1 mg/dL (8.4-10.6); Total Protein* 7.2 g/dL (6.0-8.3)
[2023-02-22] MEDS: 0.9 % SODIUM CHLORIDE 1000 ml 1,000 ML IV (12:59)
[2023-02-22 13:00] LABS: Glucose* 440 mg/dL (60-115)
[2023-02-22] MEDS: cefTRIAXone 1 GM in 0.9 % SODIUM CHLORIDE Mini-bag 100 ML IVPB (13:00)
[2023-02-22 14:23] VITALS: BP 132/72; PULSE 68; RESP 18; TEMP 36.4; O2SAT 98
--- NOTE | 2023-02-24 11:03 | ED.NURSE ---
Pt's presented to ED after [facility] informed Pt meds have not been sent to pharmacy. Verbal order given to Pharmacist for Glipizide 5mg PO daily and Metformin 500mg PO BID. Pharmacist says she's unable to fill Lantus for Pt through [facility].
--- NOTE | 2023-02-24 14:31 | ED.NURSE ---
[facility] states they are unable to fill Lantus, only Novolin or Novolog pens. Dr. Garcia updated, per Dr. Garcia and Dr. Martinez, okay to switch Rx from Lantus 15 units BID subq to Novolog 15 units BID subq with blood glucose checks. Confirmed with Pt has glucometer at home, sufficient supplies and is able to check blood glucose. states she will buy more glucometer strips, but has lancets and glucometer. Attempted to call [facility], left voicemail. [facility] called back, they state they are unable to fill Novolog rx, only Novolin. Per Dr. Garcia, Pt should take Metformin and Glipizide prescriptions, abx and f/u with PCP to manage insulin. , Mulu, called and updated. Mulu verbalizes understanding of urgency for f/u in clinic and to establish a PCP, states Pt will take abx and Metformin, Glipizide.
== END 2023-02-22 14:24 | disposition home or self-care (01) ==
PROVIDERS: Emergency Provider Family Medicine
DX: L08.9 Local infection of the skin and subcutaneous tissue, unspecified (principal); E11.65 Type 2 diabetes mellitus with hyperglycemia
CPT/HCPCS: 36415; 73660; 80048; 80076; 81001; 82803; 82962; 83605; 85025; 96365; 96375; 99284; J0696; J7030

== ENCOUNTER 2023-03-17 15:40 | Outpatient (CLI) | payer OTHER, SELFPAY | END 2023-03-17 15:41 | disposition home or self-care (01) | LOC: NFLDREF 15:41 | PROVIDERS: Visit Provider Internal Medicine | DX: E11.9 Type 2 diabetes mellitus without complications (principal) | CPT/HCPCS: 82043; 82570 ==

== ENCOUNTER 2023-05-09 00:05 | Emergency (ER) | payer OTHER, SELFPAY ==
[2023-05-09 00:21] VITALS: BP 137/85; PULSE 89; RESP 20; TEMP 36.8; O2SAT 99; BMI 28.3
[2023-05-09 01:36] LABS: Hemoglobin A1C* 10.4 % (0-5.6)
[2023-05-09 01:37] LABS: Chloride* 106 mmol/L (96-114); Potassium* 3.9 mmol/L (3.6-5.1); Sodium* 136 mmol/L (135-149)
[2023-05-09 01:40] LABS: Anion Gap 10 mEq/L (7-15); Carbon Dioxide* 20 mmol/L (20-32); Creatinine* 0.7 mg/dL (0.5-1.5); Est. Creatinine Clearance* 95.33; Estimated Glomerular Filt Rate 111 ml/min
[2023-05-09 01:41] LABS: Blood Urea Nitrogen* 19 mg/dL (7-30); Calcium* 8.6 mg/dL (8.4-10.6); Glucose* 295 mg/dL (60-115)
--- OUTSIDE RECORDS SUMMARY | 2023-05-09 01:44 | XMS_ITS | Continuity of Care Document ---
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 [facility] [address], [id number] , [place]. tel:[phone] Referring Provider: Jose Guadalupe Medrano, [address] [place] [address], [address]. tel:[phone] Init Inpt Cons New/estab Mod 5 [facility] [place], [address] [address], [place], [place], [id number], tel:[phone] [facility] No Information 1 Hayley Rogers. [address], [id number] , . tel:[phone] Referring Provider: Jose Guadalupe Medrano, [address], [address]. tel:[phone] Family History Family Member Type Diagnosis Age At Onset No Information Payers Payer name Insurance type Covered alliance party ID Authoriza tiyovana(s) [employer] [facility] [id number] Social History Type Description Quantity Date Captured [...]
--- NOTE | 2023-05-09 01:47 | ED.GENADULT ---
HPI - General Adult General Date Seen: 05/09/23 Chief complaint: Extremity Pain/Injury, Lower Stated complaint: leg pain Time Seen by Provider: 05/09/23 00:06 Source: patient Mode of arrival: ambulatory Limitations: language barrier History of Present Illness HPI narrative: patient is a 53-year-old male who comes in shortly after midnight along with his with concerns of bilateral leg pain that has been present for months to years. He has a poorly controlled type 2 diabetic. He was diagnosed 23 years ago. He has recently had osteomyelitis of both great toes requiring amputation. His last hemoglobin A1c was 13% corresponding to an average blood sugar of 330. He has had difficulty affording his medications as he is uninsured. He does get prescriptions from [facility] at times. He is taking Novolin 70/30 20 units twice daily. He also takes metformin 1000 mg twice daily. He sugars typically run in the mid to 50 range. He describes the pain in his feet and legs as burning. This keeps him from sleeping at night. He does not see a doctor regularly and has never been prescribed anything for neuropathy. In reviewing his chart he also has nephropathy and is not on an RUBEN-inhibitor. Related Data Home Medications Medication Instructions Recorded Confirmed Novolin 70/30 IM 04/01/23 metformin 1,000 mg tablet 1,000 mg PO BID 05/09/23 05/09/23 Allergies Allergy/AdvReac Type Severity Reaction Status Date / Time No Known Drug Allergies Allergy Verified 05/09/23 00:25 Review of Systems Narrative: He complains of pain in both legs and feet as well as some weakness in his legs. He has polyuria. He denies exertional chest pains or shortness of breath. Review of systems in all other areas is noted to be negative. [facility] Medical History (Updated 05/09/23 @ 01:39 by Hesham Dalal MD) Diabetic nephropathy ?E11.21 - Type 2 diabetes mellitus with diabetic nephropathy (ICD-10) Type 2 diabetes mellitus ?E11.9 - Type 2 diabetes mellitus without complications (ICD-10) Diabetic retinopathy ?E11.319 - Type 2 diabetes mellitus with unspecified diabetic retinopathy without macular edema (ICD-10) Erectile dysfunction ?N52.9 - Male erectile dysfunction, unspecified (ICD-10) Hyperlipidemia ?E78.5 - Hyperlipidemia, unspecified (ICD-10) Diabetic neuropathy ?E11.40 - Type 2 diabetes mellitus with diabetic neuropathy, unspecified (ICD-10) History of osteomyelitis ?Z87.39 - Personal history of other diseases of the musculoskeletal system and connective tissue (ICD-10) Diabetic foot ulcer with osteomyelitis ?E11.621 - Type 2 diabetes mellitus with foot ulcer (ICD-10) ?E11.69 - Type 2 diabetes mellitus with other specified complication (ICD-10) ?L97.509 - Non-pressure chronic ulcer of other part of unspecified foot with unspecified severity (ICD-10) ?M86.9 - Osteomyelitis, unspecified (ICD-10) Calculus of kidney ?N20.0 - Calculus of kidney (ICD-10) Patient's noncompliance with other medical treatment and regimen due to financial hardship ?Z91.190 - Patient's noncompliance with other medical treatment and regimen due to financial hardship (ICD-10) Surgical History History of incision and drainage ?Z98.890 - Other specified postprocedural states (ICD-10) History of partial amputation of toe of right foot ?Z89.421 - Acquired absence of other right toe(s) (ICD-10) Family History Mother Diabetes Father Diabetes Social History Narrative: . Lives with . They have 4 children. Syriac is his primary language. Speaks [place] Citizen fairly fluently. , Mulu, does not speak [place] Citizen fluently. Working outside the home. Does not have a primary care physician. Cannot afford medications, therefore does not take any medications even though he warrants medications to manage his underlying medical conditions. Requests full resuscitation in the event of cardiopulmonary demise. Designates his , Mulu, as power of managing attorney for health should that be required. What is your current living situation?: I presently have a place to live Problems where you live: no known problems Problems where you live details: NA In the past 12 months, utilities in danger of being shut off: no In past 12 months, lack of transportation kept you from medical appts, meetings, work, or getting things needed for daily living: no In the past 12 mos, have been you worried that your food would run out before you had money to buy more?: never true In the past 12 mos, the food you bought just didn't last and you didn't have money to buy more?: never true Highest level of school completed/degree received: don't know Smoking Status: Never smoker How often do you have a drink containing alcohol: monthly or less How many standard drinks containing alcohol do you have on a typical day: 1 or 2 How often do you have six or more drinks on one occasion: Never AUDIT-C Alcohol total score: 1 Non-prescribed substance use: denies use Caffeine: Yes How often does anyone, including family, friends and others, physically hurt you: never How often does anyone, including family, friends and others, insult or talk down to you: never How often does anyone, including family, friends and others, threaten you with harm: never How often does anyone, including family, friends and others, scream or curse at you: never Gender Identity: male service: No Exam Narrative: Exam Narrative: Vitals noted. HEENT: Conjunctiva clear. Neck is supple without adenopathy, thyromegaly, carotid bruit. Lungs: Clear to auscultation in all morales. No wheezes, rales, rhonchi. Heart: Regular rate and rhythm without murmur. Abdomen: Soft and nontender. No guarding, rigidity, rebound. Bowel sounds are normal. No palpable masses. Extremities: No cyanosis or edema. Good distal pulses. Skin: He has healed amputations of both great toes. Neurologic: Awake, alert, fully oriented. He has dense stocking-glove distribution neuropathy Const: Vital Signs, click to edit/add: Vital Signs - 24 hr 05/09/23 00:21 05/09/23 02:04 05/09/23 02:05 Temperature 98.2 F 98.2 F 98.2 F Pulse Rate [Right Pulse Oximeter] 89 85 85 Respiratory Rate 20 20 20 Blood Pressure [Ri ght Upper Arm] 137/85 132/84 132/84 Pulse Oximetry 99 99 Oxygen Delivery Me thod Room Air Room Air Course Course ED Course: Patient was seen and examined. We had a bilingual interpreter on the iPad. I explained to him what diabetic neuropathy is and what causes it. We discussed that tightening up his glycemic control will help keep this from getting worse. We discussed gabapentin as an option. He really needs a clinic provider to drive the dosing of this as we have to start small and build the dose up. We discussed adding lisinopril to help protect his kidneys. We will increase the dose of his metformin and his insulin. Vital Signs Vital signs: Initial Vital Signs Temperature 98.2 F 05/09/23 00:21 Temperature Source Temporal Artery Scan 05/09/23 00:21 Pulse Rate 89 05/09/23 00:21 Respiratory Rate 20 05/09/23 00:21 Blood Pressure 137/85 05/09/23 00:21 Blood Pressure Mean 102 05/09/23 00:21 Blood Pressure Position Sitting 05/09/23 00:21 Pulse Oximetry 99 05/09/23 00:21 Oxygen Delivery Method Room Air 05/09/23 00:21 Vital Signs Temperature 98.2 F 05/09/23 00:21 Pulse Rate 89 05/09/23 00:21 Respiratory Rate 20 05/09/23 00:21 Blood Pressure 137/85 05/09/23 00:21 Pulse Oximetry 99 05/09/23 00:21 Oxygen Delivery Method Room Air 05/09/23 00:21 Temperature 98.2 F 05/09/23 02:05 Pulse Rate 85 05/09/23 02:05 Respiratory Rate 20 05/09/23 02:05 Blood Pressure 132/84 05/09/23 02:05 Pulse Oximetry 99 05/09/23 02:04 Oxygen Delivery Method Room Air 05/09/23 02:04 Medical Decision Making Lab Data Labs: Lab Results 05/09/23 Range/Units 00:54 Sodium 136 (135-149) mmol/L Potassium 3.9 (3.6-5.1) mmol/L Chloride 106 (96-114) mmol/L Carbon Dioxide 20 (20-32) mmol/L Anion Gap 10 (7-15) mEq/L BUN 19 (7-30) mg/dL Creatinine 0.7 (0.5-1.5) mg/dL Estimated Creat Clear 95.33 Estimated GFR 111 ml/min Glucose 295 H (60-115) mg/dL Hemoglobin A1c 10.4 H (0-5.6) % Calcium 8.6 (8.4-10.6) mg/dL Discharge Plan Discharge Clinical Impression: Diabetic neuropathy, Diabetic nephropathy Type 2 diabetes mellitus Qualifiers: Diabetes mellitus emt intermediate insulin use: with emt intermediate use Patient Disposition: Home, Self-Care Condition: Stable Additional Instructions: It is important that you get established with a clinic doctor either at [facility] or one of the local clinics. Your blood sugars are much too high. Your hemoglobin A1c has come down from 13.1% to 10.4% which corresponds to an average blood sugar over the last three months of 255. Increase your metformin dose up to 500 mg two pills twice a day. Increase your insulin up to 25 units twice a day. This dose can be increased further if your sugars remain elevated. Your kidneys are leaking protein and I would like you to start lisinopril 10 mg daily to help protect your kidneys from the diabetes. The pain in your legs and feet is nerve damage from the diabetes. Controlling her blood sugars will help keep that from getting worse. Start gabapentin 300 mg twice a day to help with the pain. In two weeks if you are not sedated from the medication you can increase the dose to two pills twice a day. It is important that you see your clinic doctor within the next two months. Es importante que se establezca con un m?dico cl?lara, ya sea en [facility] o en nieves de las cl?nicas locales. Dior niveles de az?car en la caroline son demasiado altos. Welch hemoglobina A1c espinoza bajado de 13.1% a 10.4%, lo que corresponde a un promedio de az?car en la caroline gracie los ?ltimos nate meses de 255. Aumente welch dosis de metformina hasta 500 mg dos pastillas dos veces al d?a. Aumente welch insulina hasta 25 unidades dos veces al d?a. Esta dosis se puede aumentar a?n m?s si dior niveles de az?car permanecen elevados. Controlar dior niveles de az?car en la caroline ayudar? a evitar que empeore. Comience a wilner 300 mg de gabapentina dos veces al d?a para aliviar el dolor. En dos semanas, si no est? sedado de la medicaci?n, puede aumentar la dosis a dos pastillas dos veces al d?a. Es importante que consulte a welch m?dico cl?lara dentro de los pr?ximos dos meses. Prescriptions: No Action Novolin 70/30 IM Rx Instructions: Is using 20 units metformin 1,000 mg tablet 1,000 mg PO BID Follow Up/Referrals: Johan Giang MD [Primary Care Provider] - Stand Alone Forms: [facility] Info Instructions
[2023-05-09 02:04] VITALS: BP 132/84; PULSE 85; RESP 20; TEMP 36.8; O2SAT 99
[2023-05-09 02:05] VITALS: BP 132/84; PULSE 85; RESP 20; TEMP 36.8
== END 2023-05-09 02:06 | disposition home or self-care (01) ==
PROVIDERS: Emergency Provider Family Medicine; PCP Internal Medicine
DX: E11.40 Type 2 diabetes mellitus with diabetic neuropathy, unspecified (principal); Z79.4 Long term (current) use of insulin
CPT/HCPCS: 36415; 80048; 83036; 99282; 99284

== ENCOUNTER 2023-06-30 08:35 | Outpatient (CLI) | payer OTHER, SELFPAY ==
--- OUTSIDE RECORDS SUMMARY | 2023-06-30 11:54 | XMS_ITS | Clinical Summary ---
Author Name Unknown Organization [facility] Address [place], [place] [address] Care Team Providers Care Master Brewer Name Role Phone Pcp, No Primary Care Provider Unavailabl e Allergies No known active allergies Medications Medication Sig Dispensed Refills Start Date End Date Status ONE TOUCH TEST STRIPSIndications:Ty pe II or unspecified type diabetes mellitus without mention of complication, not stated as uncontrolled use as directed 100 5 10/28/2006 Active ACCU-CHEK COMFORT CURVE TEST STRIPSIndications:Ty pe II or unspecified type diabetes mellitus without mention of complication, not stated as uncontrolled tid 100 11 05/22/2007 Active ONE TOUCH ULTRASOFT LANCETSIndications:T ype II or unspecified type diabetes mellitus without mention of complication, not stated as uncontrolled use as directed 100 5 05/22/2007 Active insulin glargine (LANTUS) 100 unit/mL injection Inject 15 Units subcutaneous before breakfast. 10 mL 0 04/19/2011 Active metFORMIN (GLUCOPHAGE) 1,000 mg tablet 6 07/26/2016 Active NovoLOG Flexpen U-100 Insulin 100 unit/mL (3 mL) pen 0 11/13/2020 Active glipiZIDE (GLUCOTROL) 5 mg tablet Take 1 Tablet by mouth once daily before a meal. 0 11/13/2020 Active durable medical equipment (DME)Indications:Ost eomyelitis of great toe of right foot (HC) SQUARED TOE POST OP SHOE, MEDIUM, REF:[id number] 1 Each 0 11/29/2020 Active nystatin (MYCOSTATIN) cream Apply topically to affected area(s) 2 times daily. 0 01/10/2021 Active atorvastatin (LIPITOR) 20 mg tablet Take 20 mg by mouth once daily. 0 07/12/2021 Active sildenafil citrate (VIAGRA) 100 mg tablet Take 100 mg by mouth once daily if needed. 0 01/16/2021 Active Active Problems Problem Noted Date Diagnosed Date Moderate nonproliferative di abetic retinopathy of both eyes without macular edema associated with type 2 diabetes mellitus 10/19/2021 Abdominal pain, generalized 04/16/2011 Elevated LFTs 04/16/2011 Herpes simplex without mention of complication 0 01/07/2007 BALANITIS 01/25/2005 PARONYCHIA - TOE 08/07/2004 Other and unspecified hyperlipidemia 04/03/2004 Obesity, unspecified 04/03/2004 Impotence of organic origin 04/03/2004 Other acne 04/03/2004 Type II or unspecified type diabetes mellitus without mention of complication, not stated as uncontrolled 03/02/2003 Dermatophytosis of foot 03/02/2003 Encounters Date Type Department Care Team Description 05/23/2023 Telephone [facility] [address] [place] [address] Guanaco Bhat, DPM Questions (Letter) from Last 3 Months Immunizations Name Administration Dates Next Due Influenza, IIV3 (Age >=3 years) 03/02/2004 Social History Tobacco Use Types Packs/Day Years Used Date Smoking Tobacco: Former Cigarettes 0.1 3 1 - 02/18/2005 Smokeless Tobacco: Never Tobacco Cessation:Counseling Given: Yes Comments:Smoking History Packs/day: 0.1 Alcohol Use Standard Drinks/Week Comments No 0 (1 standard drink = 0.6 oz pur e alcohol) quit ~ 1998 PHQ-2 Answer Date Recorded PHQ-2 TOTAL SCORE 4 10/11/2021 Social Connections Answer Date Recorded Frequency of Communication with Friends and Fami ly Not on file 10/11/2021 Sex and Gender Information Value Date Recorded Sex Assigned at Not on file Gender Identity Not on file Sexual Orientation Not on file Obstetrics History Last Filed Vital Signs Vital Sign Reading Time Taken Comments Blood Pressure 143/86 12/11/2022 9:35 AM CDT Pulse 86 12/11/2022 9:35 AM CDT Temperature 37.1 ??C (98.8 ??F) 10/11/2021 9:26 AM CD T Respiratory Rate 16 04/19/2011 8:00 AM SENIOR TAX ACCOUNTANT Oxygen Saturation 99% 12/11/2022 9:35 AM CDT Inhaled Oxygen Concentration - - Weight 73.9 kg (163 lb) 02/27/2022 3:51 PM CDT Height 154.9 cm (5' 1) 10/11/2021 9:26 AM CDT Body Mass Index 30.8 10/11/2021 9:26 AM CDT Plan of Treatment Health Maintenance Due Date Last Done Comments Pneumococcal series for age 6-64 (1 of 2 - PCV) 1977 Tdap 1982 HIV for age 15-65 1986 Tetanus booster 1991 Colonoscopy through age 75 2016 Zoster (shingles) series for age 50+ (1 of 2) 2021 Lipids for age 45-75 08/01/2021 08/01/2016, 09/12/2005, 04/03/2004, Additional history exists BMI (ht and wt on same day) for age 18+ 10/11/2022 10/11/2021 Depression screening for age 12+ 10/11/2022 10/11/2021, 08/01/2016, 08/01/2016 COVID-19 vaccine series ( season) 2023 06/26/2021, 11/21/2020, 10/31/2020 Influenza for age 50-64 01/10/2023 03/02/2004 Hepatitis C screening for ag e 18-79 Completed 04/18/2011 Advance Directives Latest Code Status on File Code Status Date Activated Date Inactivated Comments Full Code 04/16/2011 7:40 PM 04/19/2011 2:32 PM Care Teams Master Brewer Relationship Specialty Start Date End Date Pcp, No . PCP - General 06/13/16
== END 2023-06-30 08:36 | disposition home or self-care (01) ==
LOC: NFLDREF 11:52
PROVIDERS: PCP Internal Medicine; Referring Provider Internal Medicine; Visit Provider Internal Medicine
DX: E11.40 Type 2 diabetes mellitus with diabetic neuropathy, unspecified (principal); Z79.4 Long term (current) use of insulin; Z79.84 Long term (current) use of oral hypoglycemic drugs
CPT/HCPCS: 80053

== ENCOUNTER 2024-01-06 07:46 | Outpatient (CLI) | payer OTHER, SELFPAY ==
--- OUTSIDE RECORDS SUMMARY | 2024-01-09 11:04 | XMS_ITS | Clinical Summary ---
Author Organization [employer] [facility] Address [place], [place] [address] Care Team Providers Care Manager Home Improvement Name Role Phone Pcp, No Primary Care [...] U-100 Insulin 100 unit/mL (3 mL) pen 11/13/2020 Active glipiZIDE (GLUCOTROL) 5 mg tablet Take 1 Tablet by mouth once daily before a meal. 11/13/2020 Active durable medical equipment (DME)Indications:Ost eomyelitis of great toe of right foot (HC) SQUARED TOE POST OP SHOE, MEDIUM, REF:[phone] 1 Each 11/29/2020 Active nystatin (MYCOSTATIN) cream Apply topically to affected area(s) 2 times daily. 0 01/10/2021 Active atorvastatin (LIPITOR) 20 mg tablet Take 20 mg by mouth once daily. 07/12/2021 Active sildenafil citrate (VIAGRA) 100 mg tablet Take 100 mg by mouth once daily if needed. 01/16/2021 Active Active Problems Problem Noted Date [...] as uncontrolled 03/02/2003 Dermatophytosis of foot 03/02/2003 Immunizations Name Administration Dates Next Due Influenza, [...] T Respiratory Rate 16 04/19/2011 8:00 AM DRUM BARKER OPERATOR Oxygen Saturation 99% 12/11/2022 9:35 AM CDT Inhaled Oxygen Concentration - - Weight 73.9 kg (163 lb) 02/27/2022 3:51 PM CDT Height 154.9 cm (5' 1) 10/11/2021 9:26 AM CDT Body Mass Index 30.8 10/11/2021 9:26 AM CDT Plan of Treatment Health Maintenance Due Date Last Done Comments Tdap 1982 HIV for age 15-65 1986 Tetanus booster 1991 Colonoscopy through age 75 2016 Zoster (shingles) series for age 50+ (1 of 2) 2021 Lipids for age 45-75 08/01/2021 08/01/2016, 09/12/2005, 04/03/2004, Additional history exists BMI (ht and wt on same day) for age 18+ 10/11/2022 10/11/2021 Depression screening for age 12+ 10/11/2022 10/11/2021, 08/01/2016, 08/01/2016 COVID-19 vaccine series (2022- season) 2023 06/26/2021, 11/21/2020, 10/31/2020 Influenza for age 50-64 01/11/2024 03/02/2004 Hepatitis C screening for age 18-79 Completed 04/18/2011 Pneumococcal series for age 6-64 Aged Out No longer eligible based on patient's age to complete this topic Procedures Procedure Name Priority Date/Time Associated Diagnosis Comments LIPID PANEL Routine 08/01/2016 3:28 PM CDT Type II or unspecified type diabetes mellitus without mention of complication, not stated as uncontrolled ANTI HCV Early AM 04/18/2011 7:00 AM DRUM BARKER OPERATOR from Last 3 Months or Most Recently Relevant to Health Maintenance Results * (ABNORMAL) LIPID PANEL (08/01/2016 3:28 PM CDT) CHOLESTEROL,TOTAL 170 100 - 199 mg/dL 08/01/2016 3:[address] [facility] TRIGLYCERIDES 149 <150 mg/dL 08/01/2016 3:[address] [facility] HDL CHOLESTEROL 34(L) >40 mg/dL 7 3:[address] [facility] NON-HDL CHOLESTEROL 136 <145 mg/dl 08/01/2016 3:[address] [facility] CHOL/HDL RATIO 5.00(H) <4.50 08/01/2016 3:[address] [facility] LDL CHOLESTEROL 106 <=130 mg/dL 08/01/2016 3:[address] [facility] PATIENT STATUS NON-FASTI NG 08/01/2016 3:[address] [facility] Blood BLOOD SPECIMEN / Unknown Venipuncture / Unknown 08/01/2016 3:28 PM CDT 08/01/2016 3:28 PM CDT Tabitha Silverman MD CHEMISTRY [facility] [address] [place] [address], * ANTI HCV (04/18/2011 7:00 AM DRUM BARKER OPERATOR) ANTI HCV Non-reacti ve [facility] Blood specimen (specimen) BLOOD SPECIMEN / Unknown 04/18/2011 7:00 AM DRUM BARKER OPERATOR 04/17/2011 10:02 PM DRUM BARKER OPERATOR Nell Mendoza SEND OUTS [facility] INTERNAL ZIP [id number] [address] from Last 3 Months or Most Recently Relevant to Health Maintenance Advance Directives * Full Code (Latest Code Status on File) Date Activated Date Inactivated Comments 04/16/2011 7:40 PM 04/19/2011 2:32 PM Care Teams Manager Home Improvement Relationship Specialty Start Date End Date Pcp, No . PCP - General 06/13/16
== END 2024-01-06 07:47 | disposition home or self-care (01) ==
LOC: NFLDREF 01-09 11:01
PROVIDERS: PCP Internal Medicine; Referring Provider Internal Medicine; Visit Provider Internal Medicine
DX: E11.40 Type 2 diabetes mellitus with diabetic neuropathy, unspecified (principal); E78.5 Hyperlipidemia, unspecified; E11.9 Type 2 diabetes mellitus without complications; Z13.9 Encounter for screening, unspecified; Z12.5 Encounter for screening for malignant neoplasm of prostate
CPT/HCPCS: 80053; 80061; G0103

== ENCOUNTER 2024-02-02 06:34 | Outpatient (CLI) | payer OTHER, SELFPAY ==
--- OUTSIDE RECORDS SUMMARY | 2024-02-02 06:39 | XMS_ITS | Clinical Summary ---
Author Organization [facility] [facility] Address [place], [place] [address] Care Team Providers Care Occupational Rehabilitation Aide Name Role Phone Pcp, No Primary Care [...] (HC) SQUARED TOE POST OP SHOE, MEDIUM, REF:[phone] 1 Each 11/29/2020 Active nystatin (MYCOSTATIN) cream [...] T Respiratory Rate 16 04/19/2011 8:00 AM SHOP FOREMAN Oxygen Saturation 99% 12/11/2022 9:35 AM CDT [...] 08/01/2016, 08/01/2016 COVID-19 vaccine series (2022- season) 2024 06/26/2021, 11/21/2020, 10/31/2020 Influenza for age 50-64 [...] ANTI HCV Early AM 04/18/2011 7:00 AM SHOP FOREMAN from Last 3 Months or Most Recently Relevant to Health Maintenance Results * (ABNORMAL) LIPID PANEL (08/01/2016 3:28 PM CDT) CHOLESTEROL,TOTAL 170 100 - 199 mg/dL 08/01/2016 3:56 PM CDT [facility] TRIGLYCERIDES 149 <150 mg/dL 08/01/2016 3:56 PM CDT [facility] HDL CHOLESTEROL 34(L) >40 mg/dL 7 3:56 PM CDT [facility] NON-HDL CHOLESTEROL 136 <145 mg/dl 08/01/2016 3:56 PM CDT [facility] CHOL/HDL RATIO 5.00(H) <4.50 08/01/2016 3:56 PM CDT [facility] LDL CHOLESTEROL 106 <=130 mg/dL 08/01/2016 3:56 PM CDT [facility] PATIENT STATUS NON-FASTI NG 08/01/2016 3:56 PM CDT [facility] Blood BLOOD SPECIMEN / Unknown Venipuncture / Unknown 08/01/2016 3:28 PM CDT 08/01/2016 3:28 PM CDT Tabitha Silverman MD CHEMISTRY [facility] [address] [place] [address], * ANTI HCV (04/18/2011 7:00 AM SHOP FOREMAN) ANTI HCV Non-reacti ve [facility] Blood specimen (specimen) BLOOD SPECIMEN / Unknown 04/18/2011 7:00 AM SHOP FOREMAN 04/17/2011 10:02 PM SHOP FOREMAN Nell Mendoza SEND OUTS [facility] INTERNAL ZIP [address] [address] from Last 3 Months or Most Recently Relevant to Health Maintenance Advance Directives * Full Code (Latest Code Status on File) Date Activated Date Inactivated Comments 04/16/2011 7:40 PM 04/19/2011 2:32 PM Care Teams Occupational Rehabilitation Aide Relationship Specialty Start Date End Date Pcp, No . PCP - General 06/13/16
--- OUTSIDE RECORDS SUMMARY | 2024-02-02 06:39 | XMS_ITS | Continuity of Care Document ---
Author Organization [facility] Address [address] [address] [place] [address] Phone Care Team Providers Care Hogshead Mat Assembler Name Role Phone Handy Cardenas MD Unavailable Unavailable Procedures Procedure Date Ugi Endo; W/endo Ultrasound Ex Init Inpt Cons New/estab Mod 5 11 Advance Directives Directive Yes / No Effective Date File Name No Information Encounters Encounter Description Practice Location Reason(s) For Visit Diagnoses Date Provider Providers Copied on Encounter [facility], [address] [address], [place], [place], [id number], [phone] [facility] No Information 1 Theresa Murrell. [facility] [address], [id number] , [place]. tel:[phone] Referring Provider: Jose Guadalupe Medrano, [address] [place] [address], [address]. tel:[phone] Init Inpt Cons New/estab Mod [address] [facility], [address] [address], [place], [place], [id number], [phone] [facility] No Information 1 Hayley Rogers. [address], [id number] , . [phone] Referring Provider: Jose Guadalupe Medrano, [address] [place] [address], [address]. tel:[phone] Family History Family Member Type Diagnosis Age At Onset No Information Payers Payer name Insurance type Covered constitution party ID Authoriza tion(s) [employer] Of [facility] [id number] Social History Type Description Quantity Date Captured [...]
--- NOTE | 2024-02-02 08:01 | W.ANESCHARGE ---
Anesthesia Charges Start Date/Time Anesthesia Start Date: 02/02/24 Anesthesia Start Time: 07:27 Stop Date/Time Anesthesia Stop Date: 02/02/24 Anesthesia Stop Time: 07:59
--- NOTE | 2024-02-02 12:03 | W.ANESCHARGE ---
Anesthesia Charges Start Date/Time Anesthesia Start Date: 02/02/24 Anesthesia Start Time: 07:27 Stop Date/Time Anesthesia Stop Date: 02/02/24 Anesthesia Stop Time: 07:59
== END 2024-02-02 06:35 | disposition home or self-care (01) ==
LOC: OP CLINIC 06:38
PROVIDERS: PCP Internal Medicine; Visit Provider Internal Medicine
DX: Z12.11 Encounter for screening for malignant neoplasm of colon (principal)
CPT/HCPCS: 00812; 45378; T1013; J2704

== ENCOUNTER 2024-08-15 08:19 | Emergency (ER) | payer BC, SELFPAY ==
--- OUTSIDE RECORDS SUMMARY | 2024-08-15 08:21 | XMS_ITS | Clinical Summary ---
Author Organization [facility] [facility] Address [address] [place] [address] Care Team Providers Care Centralized Traffic Control Operator Name Role Phone Pcp, No Primary Care Provider Unavailabl e Allergies No known active allergies Medications ONE TOUCH TEST STRIPSIndication s:Type II or unspecified type diabetes mellitus without mention of complication, not stated as uncontrolled (HC) use as directed 100 5 7 Active ACCU-CHEK COMFORT CURVE TEST STRIPSIndication s:Type II or unspecified type diabetes mellitus without mention of complication, not stated as uncontrolled (HC) tid 100 11 8 Active ONE TOUCH ULTRASOFT LANCETSIndicatio ns:Type II or unspecified type diabetes mellitus without mention of complication, not stated as uncontrolled (HC) use as directed 100 5 8 Active insulin glargine (LANTUS) 100 unit/mL injection Inject 15 Units subcutaneous before breakfast. 10 mL 0 1 Active metFORMIN (GLUCOPHAGE) 1,000 mg tablet 6 7 Active NovoLOG Flexpen U-100 Insulin 100 unit/mL (3 mL) pen 1 Active glipiZIDE (GLUCOTROL) 5 mg tablet Take 1 Tablet by mouth once daily before a meal. 1 Active durable medical equipment (DME)Indications :Osteomyelitis of great toe of right foot (HC) SQUARED TOE POST OP SHOE, MEDIUM, REF:[phone] 1 Each 1 Active nystatin (MYCOSTATIN) cream Apply topically to affected area(s) 2 times daily. 0 1 Active atorvastatin (LIPITOR) 20 mg tablet Take 20 mg by mouth once daily. 2 Active sildenafil citrate (VIAGRA) 100 mg tablet Take 100 mg by mouth once daily if needed. 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 Gender Identity Not on file Sexual Orientation Not on file Occupation Industry Job Start Date Job End Date Not on file Not on file Not on file Not on file Obstetrics History Last Filed Vital Signs Vital Sign Reading Time Taken Comments Blood Pressure 143/86 12/11/2022 9:35 AM CDT Pulse 86 12/11/2022 9:35 AM CDT Temperature 37.1 C (98.8 F) 10/11/2021 9:26 AM CDT Respiratory Rate 16 04/19/2011 8:00 AM BROKE WORKER Oxygen Saturation 99% 12/11/2022 9:35 AM CDT Inhaled Oxygen Concentration - - Weight 73.9 kg (163 lb) 02/27/2022 3:51 PM CDT Height 154.9 cm (5' 1) 10/11/2021 9:26 AM CDT Body Mass Index 30.8 10/11/2021 9:26 AM CDT Plan of Treatment Health Maintenance Due Date Last Done Comments Tdap 1982 HIV for age 15-65 1986 Pneumococcal series for age 50+ (1 of 2 - PCV) 1990 Tetanus booster 1991 Colonoscopy through age 75 2016 Zoster (shingles) series for age 50+ (1 of 2) 2021 Lipids for age 45-75 08/01/2021 08/01/2016, 09/12/2005, 04/03/2004, Additional history exists BMI (ht and wt on same day) for age 18+ 10/11/2022 10/11/2021 Depression screening for age 12+ 10/11/2022 10/11/2021, 08/01/2016, 08/01/2016 COVID-19 vaccine series ( season) 2024 06/26/2021, 11/21/2020, 10/31/2020 Influenza Vaccine (Season Ended) 2025 03/02/20 04 Hepatitis C screening for ag e 18-79 Completed 04/18/2011 Procedures Procedure Name Priority Date/Time Associated Diagnosis Comments LIPID PANEL Routine 08/01/2016 3:28 PM CDT Type II or unspecified type diabetes mellitus without mention of complication, not stated as uncontrolled ANTI HCV Early AM 04/18/2011 7:00 AM BROKE WORKER from Last 3 Months or Most Recently Relevant to Health Maintenance Results * (ABNORMAL) LIPID PANEL (08/01/2016 3:28 PM CDT) CHOLESTEROL,TOTAL 170 100 - 199 mg/dL 08/01/2016 3:56 PM CDT [facility] TRIGLYCERIDES 149 <150 mg/dL 08/01/2016 3:56 PM CDT [facility] HDL CHOLESTEROL 34(L) >40 mg/dL 7 3:56 PM CDT [facility] NON-HDL CHOLESTEROL 136 <145 mg/dl 08/01/2016 3:56 PM CDT [facility] CHOL/HDL RATIO 5.00(H) <4.50 08/01/2016 3:56 PM CDT [facility] LDL CHOLESTEROL 106 <=130 mg/dL 08/01/2016 3:56 PM CDT [facility] PATIENT STATUS NON-FASTI NG 08/01/2016 3:56 PM CDT [facility] Blood BLOOD SPECIMEN / Unknown Venipuncture / Unknown 08/01/2016 3:28 PM CDT 08/01/2016 3:28 PM CDT Tabitha Silverman MD CHEMISTRY Final Result [facility] [address] [place] [address], * ANTI HCV (04/18/2011 7:00 AM BROKE WORKER) ANTI HCV Non-reacti ve [facility] Blood specimen (specimen) BLOOD SPECIMEN / Unknown 04/18/2011 7:00 AM BROKE WORKER 04/17/2011 10:02 PM BROKE WORKER Nell Mendoza SEND OUTS Final Result [facility] INTERNAL ZIP [id number] [place] [id number] from Last 3 Months or Most Recently Relevant to Health Maintenance Insurance [employer] [address] [place] [address] Advance Directives * Full Code (Latest Code Status on File) Date Activated Date Inactivated Comments 04/16/2011 7:40 PM 04/19/2011 2:32 PM Care Teams Centralized Traffic Control Operator Relationship Specialty Start Date End Date Pcp, No . PCP - General 06/13/16
[2024-08-15 08:24] VITALS: BP 162/89; PULSE 87; RESP 20; TEMP 36.4; O2SAT 98; BMI 27.5
--- NOTE | 2024-08-15 08:42 | ED_ITS ---
HPI - General Adult General Chief complaint: Diabetic Related Problem Stated complaint: blood sugar Time Seen by Provider: 08/15/24 08:20 History of Present Illness HPI narrative: [age] year white male diabetic who sees Dr. Right romero has noticed his blood sugars been elevated last couple of months up and down. He noticed today was over 500. He has been using NovoLog pen, he is also be on to be on a Lantus Solostar pen. He is only using the NovoLog pen. He has gotten his meds occasionally through [facility]. There is history of medical noncompliance due to financial concerns. The patient has no ill feeling other than urinary frequency. He denies headache to me, he states he has no chest pain, shortness of breath, he has got no skin rashes or abdominal pain. The patient noticed he has urinated more frequently as mention. No dysuria. He presents to the ER with an elevated blood sugar. His blood sugar on Accu-Chek was 500. Related Data Previous Rx's ?Medication ?Instructions ?Recorded lisinopril 10 mg tablet 10 mg PO QDAY #90 tabs 03/16/24 metformin 1,000 mg tablet 1,000 mg PO BID #90 tabs 03/16/24 insulin glargine-yfgn 100 unit/mL 30 unit (0.3 mL) subcut BID #15 mL 03/18/24 (3 mL) subcutaneous pen (Semglee (insulin glargine-yfgn) Pen) pen needle, diabetic 31 gauge x #100 ea 03/19/24 1/ (Pen Needle) insulin aspart U-100 100 unit/mL 10 unit (0.1 mL) subcut TID #15 mL 03/22/24 (3 mL) subcutaneous pen (Novolog FlexPen U-100 Insulin aspart) Allergies Allergy/AdvReac Type Severity Reaction Status Date / Time No Known Drug Allergies Allergy Verified 03/16/24 07:46 Review of Systems Status of ROS: Reports: 6 or more systems reviewed and unremarkable except as noted in History and below [facility] Medical History Dysphagia ?R13.10 - Dysphagia, unspecified (ICD-10) Screening due ?Z13.9 - Encounter for screening, unspecified (ICD-10) Diabetes ?E11.9 - Type 2 diabetes mellitus without complications (ICD-10) Diabetic nephropathy ?E11.21 - Type 2 diabetes mellitus with diabetic nephropathy (ICD-10) Type 2 diabetes mellitus ?E11.9 - Type 2 diabetes mellitus without complications (ICD-10) Diabetic retinopathy ?E11.319 - Type 2 diabetes mellitus with unspecified diabetic retinopathy without macular edema (ICD-10) Erectile dysfunction ?N52.9 - Male erectile dysfunction, unspecified (ICD-10) Hyperlipidemia ?E78.5 - Hyperlipidemia, unspecified (ICD-10) Diabetic neuropathy ?E11.40 - Type 2 diabetes mellitus with diabetic neuropathy, unspecified (ICD-10) History of osteomyelitis ?Z87.39 - Personal history of other diseases of the musculoskeletal system and connective tissue (ICD-10) Diabetic foot ulcer with osteomyelitis ?E11.621 - Type 2 diabetes mellitus with foot ulcer (ICD-10) ?E11.69 - Type 2 diabetes mellitus with other specified complication (ICD-10) ?L97.509 - Non-pressure chronic ulcer of other part of unspecified foot with unspecified severity (ICD-10) ?M86.9 - Osteomyelitis, unspecified (ICD-10) Calculus of kidney ?N20.0 - Calculus of kidney (ICD-10) Patient's noncompliance with other medical treatment and regimen due to financial hardship ?Z91.190 - Patient's noncompliance with other medical treatment and regimen due to financial hardship (ICD-10) Surgical History History of incision and drainage ?Z98.890 - Other specified postprocedural states (ICD-10) History of partial amputation of toe of right foot ?Z89.421 - Acquired absence of other right toe(s) (ICD-10) Family History Mother Diabetes Father Diabetes Social History Narrative: . Lives with . They have 4 children. Palestinian is his primary language. Speaks Serbian fairly fluently. , Mulu, does not speak Serbian fluently. Working outside the home. Does not have a primary care physician. Cannot afford medications, therefore does not take any medications even though he warrants medications to manage his underlying medical conditions. Requests full resuscitation in the event of cardiopulmonary demise. Designates his , Mulu, as power of district attorney for health should that be required. What is your current living situation?: I presently have a place to live Problems where you live: no known problems Problems where you live details: NA In the past 12 months, utilities in danger of being shut off: no In past 12 months, lack of transportation kept you from medical appts, meetings, work, or getting things needed for daily living: no In the past 12 mos, have been you worried that your food would run out before you had money to buy more?: never true In the past 12 mos, the food you bought just didn't last and you didn't have money to buy more?: never true Highest level of school completed/degree received: don't know Smoking Status: Never smoker Do you use any of these nicotine containing products: None How often do you have a drink containing alcohol: monthly or less How many standard drinks containing alcohol do you have on a typical day: 1 or 2 How often do you have six or more drinks on one occasion: Never AUDIT-C Alcohol total score: 1 Non-prescribed substance use: denies use Caffeine: Yes How often does anyone, including family, friends and others, physically hurt you : never How often does anyone, including family, friends and others, insult or talk down to you: never How often does anyone, including family, friends and others, threaten you with harm: never How often does anyone, including family, friends and others, scream or curse at you: never Gender Identity: male service: No Exam Narrative: Exam Narrative: Objective: Patient's vital signs show elevated blood pressure Is alert orient x3 very cooperative No facial asymmetry Neurologic grossly nonfocal He denies abdominal or back pain. Const: Vital Signs, click to edit/add: Vital Signs - 24 hr 08/15/24 08:24 08/15/24 09:32 08/15/24 10:02 Temperature 97.6 F Pulse Rate [Pulse Oximeter] 87 Respiratory Rate 20 Blood Pressure 144/98 H 148/87 H Blood Pressure [Ri ght Upper Arm] 162/89 H Pulse Oximetry 98 Oxygen Delivery Me thod Room Air Course Vital Signs Vital signs: Initial Vital Signs Temperature 97.6 F 08/15/24 08:24 Temperature Source Temporal Artery Scan 08/15/24 08:24 Pulse Rate 87 08/15/24 08:24 Pulse Rhythm Regular 08/15/24 08:24 Respiratory Rate 20 08/15/24 08:24 Blood Pressure 162/89 H 08/15/24 08:24 Blood Pressure Mean 113 H 08/15/24 08:24 Blood Pressure Position Sitting 08/15/24 08:24 Pulse Oximetry 98 08/15/24 08:24 Oxygen Delivery Method Room Air 08/15/24 08:24 Vital Signs Temperature 97.6 F 08/15/24 08:24 Pulse Rate 87 08/15/24 08:24 Respiratory Rate 20 08/15/24 08:24 Blood Pressure 162/89 H 08/15/24 08:24 Pulse Oximetry 98 08/15/24 08:24 Oxygen Delivery Method Room Air 08/15/24 08:24 Temperature 97.6 F 08/15/24 08:24 Pulse Rate 87 08/15/24 08:24 Respiratory Rate 20 08/15/24 08:24 Blood Pressure 148/87 H 08/15/24 10:02 Pulse Oximetry 98 08/15/24 08:24 Oxygen Delivery Method Room Air 08/15/24 08:24 Medications Administered Medications: Discontinued Medications Generic Name Dose Route Start Last Admin Trade Name Freq PRN Reason Stop Dose Admin Sodium Chloride 1,000 mls @ 6,000 mls/hr 08/15/24 08:45 08/15/24 09:57 0.9 % Sodium Chloride 1000 Ml IV 08/15/24 08:54 Infused .Q10M [place] Infusion Sodium Chloride 1,000 mls @ 6,000 mls/hr 08/15/24 09:00 08/15/24 10:40 0.9 % Sodium Chloride 1000 Ml IV 08/15/24 09:09 Infused .Q10M [place] Infusion IV Miscellaneous Supplies 1 each 08/15/24 09:00 08/15/24 09:43 Pharmacist Consult MC 1 each DAILY [place] Administration Protocol Insulin Human Regular 5 unit 08/15/24 09:30 08/15/24 09:39 Insulin Regular, Human 100 Unit/Ml Vial SUBCUT 08/15/24 09:31 5 unit ONCE ONE Administration Insulin Human Regular 5 unit 08/15/24 09:58 08/15/24 10:15 Insulin Regular, Human 100 Unit/Ml Vial SUBCUT 08/15/24 09:59 5 unit ONCE ONE Administration Medical Decision Making MDM Narrative Medical decision making narrative: [age] year old male with insulin-dependent diabetes. Patient is on 1000 metformin twice a day. He takes a NovoLog pen now but it looks like he has to be on Lantus pen as well. All call pharmacy and ask them to coordinate and go through his pen usage with him so that he gets that accurately. At this point will give a couple L of fluid, check his labs. Disposition pending findings. He does not have a fruity odor to his breath, he does not appear to have diabetic ketoacidosis, I think it is just due to not using his long-acting insulin as well but will clarify with pharmacy. Disposition pending above. Addendum 11:05 a.m.: The patient's blood sugars now in the 350 range will give him some a 5 unit longer-acting insulin. Will call in his insulin pens to the pharmacy at [facility]. He will need to start these as per prescribed. Needs to monitor his blood sugar and we recommend that he see [facility] for a diabetic Education as well as use of his medications. Number was given to the family for this. Lab Data Labs: Lab Results 08/15/24 08/15/24 Range/Units 08:45 09:27 WBC 7.11 (4.50-11.00) K/uL RBC 5.49 (4.30-5.90) m/uL Hgb 16.3 (13.5-17.5) gm/dL Hct 45.7 (37.0-53.0) % MCV 83 (80-100) fL MCH 30 (26-34) pg MCHC 36 (32-36) gm/dL RDW Coeff of Abrahan 11.8 (11.5-15.5) % Plt Count 298 (140-440) K/uL Neut % (Auto) 56.1 (42.0-72.0) % Lymph % (Auto) 30.4 (20-44) % [place] % (Auto) 9.8 (0.0-11.0) % Eos % (Auto) 3.1 (0.0-7.0) % Baso % (Auto) 0.3 (0.0-3.0) % Neut # (Auto) 3.99 (1.7-7.0) K/uL Lymph # (Auto) 2.16 (0.90-2.90) K/uL [place] # (Auto) 0.70 (0.00-0.90) K/UL Eos # (Auto) 0.22 (0.00-0.50) K/uL Baso # (Auto) 0.02 (0.00-0.30) K/uL Abs Immat Gran (auto) 0.02 (0.00-0.30) K/uL Imm/Tot Granulo (auto) 0.3 % Sodium 134 L (135-149) mmol/L Potassium 4.3 (3.6-5.1) mmol/L Chloride 99 (96-114) mmol/L Carbon Dioxide 22 (20-32) mmol/L Anion Gap 13 (7-15) mEq/L BUN 18 (7-30) mg/dL Creatinine 0.8 (0.5-1.5) mg/dL Estimated Creat Clear 89.42 Estimated GFR 106 ml/min Glucose 505 H* (60-115) mg/dL Lactate 1.7 (0.5-1.9) mmol/L Calcium 9.7 (8.4-10.6) mg/dL Total Bilirubin 0.7 (0.1-1.5) mg/dL Direct Bilirubin 0.3 (0.0-0.5) mg/dL AST 28 (12-35) U/L ALT 34 (4-50) U/L Alkaline Phosphatase 301 H (40-150) U/L Total Protein 7.6 (6.0-8.3) g/dL Albumin 4.6 (3.3-5.0) g/dL Amylase 85 (18-89) U/L Urine Color Yellow (Yellow) Urine Appearance Clear (Clear) Urine pH 5.5 (5.0-8.5) Ur Specific [place] 1.010 (1.000-1.030) Urine Protein 1+ A (Negative) Urine Glucose (UA) 2+ A (Negative) Urine Ketones Negative (Negative) Urine Blood Trace-lysed A (Negative) Urine Nitrite Negative (Negative) Urine Bilirubin Negative (Negative) Urine Urobilinogen 0.2 (0.2-1.0) Ur Leukocyte Esterase Negative (Negative) Urine RBC 2-5 A (0-2) Urine WBC 0-2 (0-5) Ur Squamous Epith Cells None (None-Few) Urine Bacteria None (None) Discharge Plan Discharge Clinical Impression: Diabetes, Diabetic neuropathy, Hyperglycemia Patient Disposition: Home w/ Parent or Adult Condition: Improved Additional Instructions: Please give a [employer] diabetic Education number. Go refill your medications at [facility]. He will need to be using 2 insulin pens 1 short 1 long-acting insulin. Recommend you see your regular doctor in the next couple of weeks for recheck. Return to ED as needed. Activity Level: No Restrictions Discharge Diet: Diabetic Prescriptions: No Action lisinopril 10 mg tablet 10 mg PO QDAY Qty: 90 3RF metformin 1,000 mg tablet 1,000 mg PO BID Qty: 90 3RF insulin glargine-yfgn [Semglee(insulin glarg-yfgn)Pen] 100 unit/mL (3 mL) insulin pen 30 unit subcut BID Qty: 15 3RF (DME) pen needle, diabetic [Pen Needle] 31 gauge x 1/4 needle See Rx Instructions .Route Qty: 100 11RF Rx Instructions: To inject insulin QID insulin aspart U-100 [Novolog FlexPen U-100 Insulin] 100 unit/mL (3 mL) insulin pen 10 unit subcut TID Qty: 15 3RF Follow Up/Referrals: Johan Giang MD [Primary Care Provider] - Stand Alone Forms: [facility] Info Instructions
[2024-08-15] MEDS: 0.9 % SODIUM CHLORIDE 1000 ml 1,000 ML 6000 ML IV ×2 (08:50→09:58)
[2024-08-15 08:52] LABS: Basophils Absolute Auto 0.02 K/uL (0.00-0.30); Basophils Percent Auto 0.3 % (0.0-3.0); Eosinophils Absolute Auto 0.22 K/uL (0.00-0.50); Eosinophils Percent Auto 3.1 % (0.0-7.0); Hematocrit 45.7 % (37.0-53.0); Hemoglobin* 16.3 gm/dL (13.5-17.5); Immature Granulocytes Abs Auto 0.02 K/uL (0.00-0.30); Immature Granulocytes Pct Auto 0.3 %; Lymphocytes Absolute Auto 2.16 K/uL (0.90-2.90); Lymphocytes Percent Auto 30.4 % (20-44); Mean Corpuscular HGB Conc 36 gm/dL (32-36); Mean Corpuscular Hemoglobin 30 pg (26-34); Mean Corpuscular Volume 83 fL (80-100); Monocytes Percent Auto 9.8 % (0.0-11.0); Neutrophils Absolute Auto 3.99 K/uL (1.7-7.0); Neutrophils Percent Auto 56.1 % (42.0-72.0); Platelet Count* 298 K/uL (140-440); RDW Coefficient of Variation % 11.8 % (11.5-15.5); Red Blood Count 5.49 m/uL (4.30-5.90); White Blood Count* 7.11 K/uL (4.50-11.00)
[2024-08-15 08:56] LABS: Slide Review Reflex No
[2024-08-15 08:57] LABS: Lactate* 1.7 mmol/L (0.5-1.9)
[2024-08-15 09:09] LABS: Albumin* 4.6 g/dL (3.3-5.0); Chloride* 99 mmol/L (96-114); Sodium* 134 mmol/L (135-149)
[2024-08-15 09:10] LABS: Potassium* 4.3 mmol/L (3.6-5.1)
[2024-08-15 09:12] LABS: Alanine Aminotransferase* 34 U/L (4-50); Alkaline Phosphatase* 301 U/L (40-150); Amylase* 85 U/L (18-89); Anion Gap 13 mEq/L (7-15); Aspartate Amino Transferase* 28 U/L (12-35); Bilirubin Direct* 0.3 mg/dL (0.0-0.5); Bilirubin Total* 0.7 mg/dL (0.1-1.5); Blood Urea Nitrogen* 18 mg/dL (7-30); Calcium* 9.7 mg/dL (8.4-10.6); Carbon Dioxide* 22 mmol/L (20-32); Creatinine* 0.8 mg/dL (0.5-1.5); Est. Creatinine Clearance* 89.42; Estimated Glomerular Filt Rate 106 ml/min; Total Protein* 7.6 g/dL (6.0-8.3)
[2024-08-15 09:14] LABS: Glucose* 505 mg/dL (60-115)
[2024-08-15 09:32] VITALS: BP 144/98
[2024-08-15 09:34] LABS: Appearance Urine Clear (Clear); Bilirubin Urine Negative (Negative); Blood Urine Trace-lysed (Negative); Color Urine Yellow (Yellow); Glucose Urine 2+ (Negative); Ketones Urine Negative (Negative); Leukocyte Esterase Urine Negative (Negative); Nitrite Urine Negative (Negative); Protein Urine 1+ (Negative); Urobilinogen Urine 0.2 (0.2-1.0); pH Urine 5.5 (5.0-8.5)
[2024-08-15] MEDS: INSULIN REGULAR, HUMAN 100 UNIT/ML VIAL SUBCUT ×2 (09:39→10:15)
[2024-08-15 09:45] LABS: WBC Urine 0-2 (0-5)
[2024-08-15 10:02] VITALS: BP 148/87
== END 2024-08-15 12:03 | disposition home or self-care (01) ==
PROVIDERS: Emergency Provider Family Medicine; PCP Internal Medicine
DX: E11.40 Type 2 diabetes mellitus with diabetic neuropathy, unspecified (principal); E11.65 Type 2 diabetes mellitus with hyperglycemia; Z79.4 Long term (current) use of insulin; Z91.141 Patient's other noncompliance with medication regimen due to financial hardship
CPT/HCPCS: 36415; 80048; 80076; 81001; 82150; 82962; 83605; 85025; 87086; 96360; 99284; J1815; J7030

== ENCOUNTER 2024-08-19 09:50 | Outpatient (CLI) | payer BC, SELFPAY | END 2024-08-19 09:51 | disposition home or self-care (01) | LOC: NFLDREF 09:51 | PROVIDERS: PCP Internal Medicine; Visit Provider Internal Medicine | DX: E11.65 Type 2 diabetes mellitus with hyperglycemia (principal); Z79.4 Long term (current) use of insulin; Z79.84 Long term (current) use of oral hypoglycemic drugs | CPT/HCPCS: 80048 ==

== ENCOUNTER 2024-10-16 19:45 | Emergency (ER) | payer OTHER, BC, SELFPAY ==
--- OUTSIDE RECORDS SUMMARY | 2011-04-16 19:00 | XMS_ITS | Continuity of Care Document ---
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 [facility] [address], [id number] , [place]. [phone] Referring Provider: Jose Guadalupe Medrano, [address] [place] [address], [address]. tel:[phone] Init Inpt Cons New/estab Mod 5 [facility] [place], [address] [address], [place], [place], [id number], [phone] [facility] No Information 1 Hayley Rogers. [address], [id number] , . [phone] Referring Provider: Jose Guadalupe Medrano, [address] [place] [address], [address]. tel:[phone] Family History Family Member Type Diagnosis Age At Onset No Information Payers Payer name Insurance type Covered green party ID Authoriza tion(s) Blue Cross Of [facility] [id number] Social History Type Description Quantity Date Captured Comments Sex Male Smoking Status No Information Chief Complaint And Reason For Visit No Information Reason For Referral Reason For Referral No Information History Of Present Illness Encounter Date Complaint History Of Prese nt Illness No Information Functional Status Date Functional Assessmen t No Information Instructions Date Instruction Additional Infor mation No Information Assessments Type Assessment Date No Information Patient Care Teams Name Effective Dates (start - stop) Status Members No Information
--- OUTSIDE RECORDS SUMMARY | 2011-04-16 19:00 | XMS_ITS | Continuity of Care Document ---
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 [facility] [address], [id number] , [place]. [phone] Referring Provider: Jose Guadalupe Medrano, [address] [place] [address], [address]. tel:[phone] Init Inpt Cons New/estab Mod 5 [facility] [place], [address] [address], [place], [place], [id number], [phone] [facility] No Information 1 Hayley Rogers. [address], [id number] , . [phone] Referring Provider: Jose Guadalupe Medrano, [address] [place] [address], [address]. tel:[phone] Family History Family Member Type Diagnosis Age At Onset No Information Payers Payer name Insurance type Covered constitution party ID Authoriza tion(s) Blue Cross Of [facility] [id number] Social History Type Description Quantity Date Captured [...]
--- OUTSIDE RECORDS SUMMARY | 2024-10-16 19:47 | XMS_ITS | Clinical Summary ---
Author Organization [facility] [facility] Address [address] [place] [address] Care Team Providers Care Home Care Associate Name Role Phone Pcp, No Primary Care [...] (HC) SQUARED TOE POST OP SHOE, MEDIUM, REF:[phone] 1 Each 1 Active nystatin (MYCOSTATIN) cream [...] on file Legal Sex Male 5:38 AM TAKER OFF Gender Identity Not on file Sexual Orientation [...] CDT Respiratory Rate 16 04/19/2011 8:00 AM TAKER OFF Oxygen Saturation 99% 12/11/2022 9:35 AM CDT Inhaled Oxygen Concentration - - Weight 73.9 kg (163 lb) 02/27/2022 3:51 PM CDT Height 154.9 cm (5' 1) 10/11/2021 9:26 AM CDT Body Mass Index 30.8 10/11/2021 9:26 AM CDT Plan of Treatment Health Maintenance Due Date Last Done Comments Tdap 1982 HIV for age 15-65 1986 Hepatitis B series for 19+ ( 1 of 3 - 19+ 3-dose series) 1990 Pneumococcal series for age 50+ (1 of [...] ANTI HCV Early AM 04/18/2011 7:00 AM TAKER OFF from Last 3 Months or Most Recently Relevant to Health Maintenance Results * (ABNORMAL) LIPID PANEL (08/01/2016 3:28 PM CDT) [facility] [address] CHOLESTEROL,TOTAL 170 100 - 199 mg/dL 08/01/2016 3:56 PM CDT [facility] TRIGLYCERIDES 149 <150 mg/dL 08/01/2016 3:56 PM CDT [facility] HDL CHOLESTEROL 34(L) >40 mg/dL 7 3:56 PM CDT [facility] NON-HDL CHOLESTEROL 136 <145 mg/dl 08/01/2016 3:56 PM CDT [facility] CHOL/HDL RATIO 5.00(H) <4.50 08/01/2016 3:56 PM CDT [facility] LDL CHOLESTEROL 106 <=130 mg/dL 08/01/2016 3:56 PM CDT [facility] PATIENT STATUS NON-FASTI NG 08/01/2016 3:56 PM CDT [facility] Blood BLOOD SPECIMEN / Unknown Venipuncture / Unknown 08/01/2016 3:28 PM CDT 08/01/2016 3:28 PM CDT us Tabitha Silverman MD CHEMISTRY Final Result [facility] [address] [place] [address], * ANTI HCV (04/18/2011 7:00 AM TAKER OFF) ANTI HCV Non-reacti ve [facility] Blood specimen (specimen) BLOOD SPECIMEN / Unknown 04/18/2011 7:00 AM TAKER OFF 04/17/2011 10:02 PM TAKER OFF us Nell Mendoza SEND OUTS Final Result [facility] INTERNAL ZIP [address] [place] [id number] from Last 3 Months or Most Recently Relevant to Health Maintenance Insurance [employer] Advance Directives * Full Code (Latest Code Status on File) Date Activated Date Inactivated Comments 04/16/2011 7:40 PM 04/19/2011 2:32 PM Care Teams Home Care Associate Relationship Specialty Start Date End Date Pcp, No . PCP - General 06/13/16
[2024-10-16 19:52] VITALS: BP 150/77; PULSE 96; RESP 20; TEMP 36.1; O2SAT 98
--- NOTE | 2024-10-16 20:01 | ED_ITS ---
HPI - Eye Problem General Chief complaint: Eye Problems Stated complaint: Objects in right eye Time Seen by Provider: 10/16/24 19:48 History of Present Illness HPI Narrative: 54-year-old male who is very pleasant he presents with right eye irritation after he got something in his eye on Friday. It has been bugging him for a couple of days. He has had no gross visual acuity change. He feels like there is something under his upper eyelid. No visual acuity problems that he mentions. He was wearing eye protection when this happened. He was not grinding metal. He was not using any mental products. Related Data Previous Rx's ?Medication ?Instructions ?Recorded insulin aspart U-100 100 unit/mL 10 unit (0.1 mL) subc ut TID #15 mL 08/16/24 (3 mL) subcutaneous pen (Novolog FlexPen U-100 Insulin aspart) insulin glargine-yfgn 100 unit/mL 30 unit (0.3 mL) sub cut BID #15 mL 08/16/24 (3 mL) subcutaneous pen (Semglee (insulin glargine-yfgn) Pen) lisinopril 10 mg tablet 10 mg PO QDAY #90 tabs 08/16 metformin 1,000 mg tablet 1,000 mg PO BID #180 tabs pen needle, diabetic 31 gauge x #400 ea 08/16/24/ (Pen Needle) Allergies Allergy/AdvReac Type Severity Reaction Status Date / Time No Known Drug Allergies Allergy Verified 10/16/24 19:51 Review of Systems Status of ROS: Reports: 6 or more systems reviewed and unremarkable except as noted in History and below [facility] Medical History Dysphagia ?R13.10 - Dysphagia, unspecified (ICD-10) Screening due ?Z13.9 - Encounter for screening, unspecified (ICD-10) Diabetes ?E11.9 - Type 2 diabetes mellitus without complications (ICD-10) Diabetic nephropathy ?E11.21 - Type 2 diabetes mellitus with diabetic nephropathy (ICD-10) Type 2 diabetes mellitus ?E11.9 - Type 2 diabetes mellitus without complications (ICD-10) Diabetic retinopathy ?E11.319 - Type 2 diabetes mellitus with unspecified diabetic retinopathy without macular edema (ICD-10) Erectile dysfunction ?N52.9 - Male erectile dysfunction, unspecified (ICD-10) Hyperlipidemia ?E78.5 - Hyperlipidemia, unspecified (ICD-10) Diabetic neuropathy ?E11.40 - Type 2 diabetes mellitus with diabetic neuropathy, unspecified (ICD-10) History of osteomyelitis ?Z87.39 - Personal history of other diseases of the musculoskeletal system and connective tissue (ICD-10) Diabetic foot ulcer with osteomyelitis ?E11.621 - Type 2 diabetes mellitus with foot ulcer (ICD-10) ?E11.69 - Type 2 diabetes mellitus with other specified complication (ICD-10) ?L97.509 - Non-pressure chronic ulcer of other part of unspecified foot with unspecified severity (ICD-10) ?M86.9 - Osteomyelitis, unspecified (ICD-10) Calculus of kidney ?N20.0 - Calculus of kidney (ICD-10) Patient's noncompliance with other medical treatment and regimen due to financial hardship ?Z91.190 - Patient's noncompliance with other medical treatment and regimen due to financial hardship (ICD-10) Surgical History History of incision and drainage ?Z98.890 - Other specified postprocedural states (ICD-10) History of partial amputation of toe of right foot ?Z89.421 - Acquired absence of other right toe(s) (ICD-10) Family History Mother Diabetes Father Diabetes Social History Narrative: . Lives with . They have 4 children. Czech is his primary language. Speaks Azeri fairly fluently. , Mulu, does not speak Azeri fluently. Working outside the home. Does not have a primary care physician. Cannot afford medications, therefore does not take any medications even though he warrants medications to manage his underlying medical conditions. Requests full resuscitation in the event of cardiopulmonary demise. Designates his , Mulu, as power of surgical assistant for health should that be required. What is your current living situation?: I presently have a place to live Problems where you live: no known problems Problems where you live details: NA In the past 12 months, utilities in danger of being shut off: no In past 12 months, lack of transportation kept you from medical appts, meetings, work, or getting things needed for daily living: no In the past 12 mos, have been you worried that your food would run out before you had money to buy more?: never true In the past 12 mos, the food you bought just didn't last and you didn't have money to buy more?: never true Highest level of school completed/degree received: don't know Smoking Status: Never smoker Do you use any of these nicotine containing products: None How often do you have a drink containing alcohol: monthly or less How many standard drinks containing alcohol do you have on a typical day: 1 or 2 How often do you have six or more drinks on one occasion: Never AUDIT-C Alcohol total score: 1 Non-prescribed substance use: denies use Caffeine: Yes How often does anyone, including family, friends and others, physically hurt you : never How often does anyone, including family, friends and others, insult or talk down to you: never How often does anyone, including family, friends and others, threaten you with harm: never How often does anyone, including family, friends and others, scream or curse at you: never Gender Identity: male service: No Exam Narrative: Exam Narrative: Objective: Vital signs show slightly elevated blood pressure systolic He has got some mild right eye redness of his conjunctiva, there is no epicanthal me debris or mattering his gross visual acuity is normal extra movements are intact Const: Vital Signs, click to edit/add: Vital Signs - 24 hr 10/16/24 19:52 Temperature 97.0 F L Pulse Rate [Pulse Oximeter] 96 Respiratory Rate 20 Blood Pressure [Ri ght Upper Arm] 150/77 H Pulse Oximetry 98 Oxygen Delivery Me thod Room Air Course Vital Signs Vital signs: Initial Vital Signs Temperature 97.0 F L 10/16/24 19:52 Temperature Source Temporal Artery Scan 10/16/24 19:52 Pulse Rate 96 10/16/24 19:52 Respiratory Rate 20 10/16/24 19:52 Blood Pressure 150/77 H 10/16/24 19:52 Blood Pressure Mean 101 10/16/24 19:52 Pulse Oximetry 98 10/16/24 19:52 Oxygen Delivery Method Room Air 10/16/24 19:52 Vital Signs Temperature 97.0 F L 10/16/24 19:52 Pulse Rate 96 10/16/24 19:52 Respiratory Rate 20 10/16/24 19:52 Blood Pressure 150/77 H 10/16/24 19:52 Pulse Oximetry 98 10/16/24 19:52 Oxygen Delivery Method Room Air 10/16/24 19:52 Temperature 97.0 F L 10/16/24 19:52 Pulse Rate 96 10/16/24 19:52 Respiratory Rate 20 10/16/24 19:52 Blood Pressure 150/77 H 10/16/24 19:52 Pulse Oximetry 98 10/16/24 19:52 Oxygen Delivery Method Room Air 10/16/24 19:52 MDM - Eye Problem MDM Narrative Medical decision making narrative: [age] year male with a foreign body sensation his right eye he underwent a procedure with tetracaine drops and then fluorescein. I was able to carefully inspect his eye with magnification I do not see any foreign body no corneal abrasion he did have a under the upper eyelid sweep with a Q-tip and there was just a little particle of dirt or dust. Hopefully this is the source of his issue. I was unable to visually inspect any abnormality. Again bow she ?gross visual acuity is unremarkable. I would recommend he follow up with his regular eye doctor on Friday for recheck. Will given gentamicin to take 1 drop 3 times a day to the right eye until then, observation recheck as needed. He was comfortable plan. Discharge Plan Discharge Clinical Impression: Foreign body sensation, right eye Patient Disposition: Home w/ Parent or Adult Condition: Improved Additional Instructions: Gentamicin eyedrops 1 drop to the right eye 3 times a day until he sees the eye doctor on Friday. Recommend you see your regular eye doctor. Return to ED sooner problems or concerns. It appeared there was some mild foreign body in h er eye and hopefully that will relieve her symptoms. Antibiotic is for preventing infection. Activity Level: No Restrictions Discharge Diet: Regular Prescriptions: No Action insulin aspart U-100 [Novolog FlexPen U-100 Insulin] 100 unit/mL (3 mL) insulin pen 10 unit subcut TID Qty: 15 3RF insulin glargine-yfgn [Semglee(insulin glarg-yfgn)Pen] 100 unit/mL (3 mL) insulin pen 30 unit subcut BID Qty: 15 3RF lisinopril 10 mg tablet 10 mg PO QDAY Qty: 90 0RF metformin 1,000 mg tablet 1,000 mg PO BID Qty: 180 0RF (DME) pen needle, diabetic [Pen Needle] 31 gauge x 1/4 needle See Rx Instructions .Route Qty: 400 0RF Rx Instructions: To inject insulin QID Follow Up/Referrals: Johan Giang MD [Primary Care Provider, Internal Medicine] Stand Alone Forms: [facility] Info Instructions
== END 2024-10-16 20:19 | disposition home or self-care (01) ==
LOC: ED 20:19
PROVIDERS: Emergency Provider Family Medicine; PCP Internal Medicine
DX: H57.8A1 Foreign body sensation, right eye (principal)
CPT/HCPCS: 99283; 99284

== ENCOUNTER 2024-12-06 09:05 | Outpatient (CLI) | payer BC, SELFPAY | END 2024-12-06 09:06 | disposition home or self-care (01) | LOC: NFLDREF 12-09 12:32 | PROVIDERS: PCP Internal Medicine; Referring Provider Internal Medicine; Visit Provider Internal Medicine | DX: E78.5 Hyperlipidemia, unspecified (principal); E11.65 Type 2 diabetes mellitus with hyperglycemia | CPT/HCPCS: 80061 ==

== ENCOUNTER 2025-03-16 08:37 | Outpatient (CLI) | payer BC, SELFPAY | END 2025-03-16 08:38 | disposition home or self-care (01) | LOC: NFLDREF 08:38 | PROVIDERS: PCP Internal Medicine; Visit Provider Internal Medicine | DX: E11.9 Type 2 diabetes mellitus without complications (principal) | CPT/HCPCS: 80053; 87086 ==